=== PATIENT | female | born 1955 | race Caucasian/White ===

== ENCOUNTER 2021-04-09 14:01 | Emergency (ER) | payer BC ==
--- OUTSIDE RECORDS SUMMARY | 2021-04-09 14:09 | XMS REPORT | Continuity of Care Document ---
:1955 Author Organization [facility] t Address [address] [place] [address] Care Team Providers Name Role Phone ROSSY ALEMAN Primary Care Physician Unavailable MICHAEL DOBBS Attending Clinician Unavailable INFUSION Attending Clinician Unavailable LE Attending Clinician Unavailable RADHA Attending Clinician Unavailable SUZYONAUGUSTINA Attending Clinician Unavailable Infusion Attending Clinician Unavailable Claribel RM Attending Clinician Unavailable Michael Dobbs MD Attending Clinician Leticia SANCHEZ Attending Clinician Unavailable Leticia BOLAND Attending Clinician Unavailable ARIEL ALEMAN Attending Clinician Unavailable Kavon BISWAS Attending Clinician Unavailable SUJEY Attending Clinician Unavailable ROUND, E Attending Clinician Unavailable LAB39 Attending Clinician Unavailable OSORO Attending Clinician Unavailable SWAB, COVID SELF Attending Clinician Unavailable MARCELO BISWAS Attending Clinician Unavailable Alex Reddy MD Attending Clinician Sandra Park CRNA Attending Clinician Marcelo Biswas MD Attending Clinician Unavailable SWAB, COVID SELF Attending Clinician Unavailable [id number] Attending Clinician Unavailable [id number] Attending Clinician Unavailable MAC Attending Clinician Unavailable Edis GABRIEL Attending Clinician Unavailable aKiser Canales MD Attending Clinician Mariya IZQUIERDO Attending Clinician Gaby IZQUIERDO Attending Clinician MARIYA Attending Clinician Unavailable [id number] Attending Clinician Unavailable MARCELO BISWAS Admitting Clinician Unavailable MARIYA Admitting Clinician Unavailable Payers Payer Name Policy Type Policy Number Effective Date Expiration Date Andrés baxter BCBS 2 [id number] 2020 00:00:00 BCBS OS [id number] 2020 00:00:00 POS/PPO/EPO Problems Condition Condition Condition Status Onset Resolution Last Treating Co mments Source Name Details Category Date Date Treatment Clinician Date Cancer of Cancer of Disease Active 2020-02 Gustavo sey sigmoid sigmoid 1-03 Seybold colon colon 00:00: 00 Sigmoid Sigmoid Disease Active 2020-[address] [facility] diverticul diverticul 0-06 Lana kes - itis itis 00:00: Medical 00 [place] Dyslipidem Dyslipidem Disease Active 2020-02 K elsey ia ia 0-01 Seybold 00:00: 00 Preoperati Preoperati Disease Active 2020-02 K meenahéctor ve ve 0-01 Seybold clearance clearance 00:00: 00 Diverticul Diverticul Disease Active [facility] Medical 00 [place] GI bleed GI bleed Disease [facility] Center Allergies, Adverse Reactions, Alerts Allergy Allergy Status Severity Reaction(s) Onset Inactive Treating Comm ents Source Name Type Date Date Clinician NO KNOWN Allergy Active [facility] Social History Social Habit Start Date Stop Date Quantity Comments Source Exposure to Not sure Haley sunshine SARS-CoV-2 (event) Alcohol intake 2020-12-01 2020-12-01 Ex-drinker [facility] - 00:[facility]:00 00:00:00 (finding) [facility] Tobacco use and 2020-09-12 2020-09-[address] [facility] Lana kes - exposure 00:00:00 00:00:[address] [facility] Sex Assigned At [address] Lana kes - 00:00:00 00:00:[address] [facility] Smoking Status Start Date Stop Date Source Never smoker [facility] Ex-smoker 2020-05-31 00:00:00 2020-05-31 00:00:00 Haley S annabold Medications Ordered Filled Start Stop Current Ordering Indication Dosage Frequency Signature Comments Components Source Medication Medication Date Date Medication? Clinician (SIG) Name Name PEG-KCl-NaC Yes [id number] Take as Haley l-NaSulf-Na 2-04 directed Seyb old [facility] 00:00: (MOVIPREP) 00 100 g oral Recon Soln Capecitabin Yes [id number] Take 3 Haley e (XELODA) 2-03 tablets Seybol d 500 MG oral 00:00: (1,500 mg) tablet 00 by mouth every AM and 3 tablets (1,500 mg) by mouth every PM for 14 days, then take 7 days off, then repeat cycle. Use as directed by physician. Take doses approximat vanesa 12 hours apart at the end of a meal. Diphenoxyla Yes 1{tbl} Q.25D Take 1 K elsey te-Atropine 1-12 tablet by Jama davis (Lomotil) 00:00: mouth 4 2.5-0.025 00 times MG oral daily as Tablet needed for diarrhea Dexamethaso Yes 8mg Take 2 Noy ey ne 1-04 tablets (8 Seybold (DECADRON) 00:00: mg total) 4 MG oral 00 by mouth 2 tablet times daily (with meals) Oxaliplatin 2021- No [id number] 130mg/m 230 mg Haley (ELOXATIN) 02-27 2 (rounded Seyb old 230 mg in 18:15: 21:00 from 230.1 Dextrose 5 00 :00 mg = 130 % 500 mL mg/m2 infusion ?1.77 m2 Treatment Plan BSA from Recorded weight), at 250 mL/hr, Administer over 120 Minutes, intravenou s, ONCE, On Sat02/27/21 at 1215, For 1 dose
US E ONLY D5W (dextrose) to flush the line pre and post oxaliplati n infusion.& nbsp;&nbsp ;No ice chips or cold food and drink for patients on Oxaliplati n.
sodium 2021- No [id number] intravenou Haley chloride 02-27 s, ONCE, Seybol d 0.9 % 500 17:45: 18:23 On Mon mL infusion 00 :00 02/27/21 at 1145, For 1 dose Palonosetro 2021- No [id number] .25mg 0.25 mg, [facility] n (ALOXI) 02-27 intravenou Sey bold injection 17:45: 17:39 s push, 0.25 mg 00 :00 ONCE, On Sat02/27/21 at 1145, For 1 dose
Gi ve 30 minutes prior to chemothera py.
Fosaprepita 2021- No [id number] 150mg 150 mg, at [facility] nt 02-27 495 mL/hr, Seybold Dimeglumine 17:45: 18:12 Administer (EMEND) 150 00 :00 over 20 mg in Minutes, sodium intravenou chloride s, ONCE, 0.9 % 150 On Mon mL infusion 02/27/21 at 1145, For 1 dose
Gi ve 30 minutes prior to chemothera py.
Dexamethaso 2021- No [id number] 12mg 12 mg, at [facility] ne 02-27 355.2 Seybold (DECADRON) 17:45: 17:52 mL/hr, 12 mg in 00 :00 Administer sodium over 10 chloride Minutes, 0.9 % 50 mL intravenou infusion s, ONCE, On Sat02/27/21 at 1145, For 1 dose
Gi ve 30 minutes prior to chemothera py.
Prochlorper 2020-02 Yes 10mg Q6H Take 1 Noy ey azine 2-21 tablet (10 Seybold (COMPAZINE) 00:00: mg total) 10 MG oral 00 by mouth Tablet every 6 tablet hours as needed for nausea Prochlorper 2020-02 Yes 10mg Q6H Take 1 Noy ey azine 2-21 tablet (10 Seybold (COMPAZINE) 00:00: mg total) 10 MG oral 00 by mouth Tablet every 6 tablet hours as needed for nausea Prochlorper 2020-02 Yes 10mg Q6H Take 1 Noy ey azine 2-21 tablet (10 Seybold (COMPAZINE) 00:00: mg total) 10 MG oral 00 by mouth Tablet every 6 tablet hours as needed for nausea Prochlorper 2020-02- No 10mg Q6H Take 1 Gustavo sey azine 04-17 tablet (10 Seybold (COMPAZINE) 00:00: 00:00 mg total) 10 MG oral 00 :00 by mouth Tablet every 6 tablet hours as needed for nausea Oxaliplatin 2020-02- No [id number] 130mg/m 230 mg Haley (ELOXATIN) 04-09 2 (rounded Seyb old 230 mg in 19:30: 22:45 from 230.1 Dextrose 5 00 :00 mg = 130 % 500 mL mg/m2 infusion ?1.77 m2 Treatment Plan BSA from Recorded weight), at 250 mL/hr, Administer over 120 Minutes, intravenou s, ONCE, On Sat02/06/21 at 1330, For 1 dose
US E ONLY D5W (dextrose) to flush the line pre and post oxaliplati n infusion.& nbsp;&nbsp ;No ice chips or cold food and drink for patients on Oxaliplati n.
sodium 2020-02- No [id number] intravenou Haley chloride 04-09 s, ONCE, Seybol d 0.9 % 500 19:00: 19:50 On Mon mL infusion 00 :00 02/06/21 at 1300, For 1 dose Palonosetro 2020-02- No [id number] .25mg 0.25 mg, Haley n (ALOXI) 04-09 intravenou Sey bold injection 19:00: 19:03 s push, 0.25 mg 00 :00 ONCE, On Sat02/06/21 at 1300, For 1 dose
Gi ve 30 minutes prior to chemothera py.
Fosaprepita 2020-02- No [id number] 150mg 150 mg, at Haley nt 04-09 495 mL/hr, Seybold Dimeglumine 19:00: 20:06 Administer (EMEND) 150 00 :00 over 20 mg in Minutes, sodium intravenou chloride s, ONCE, 0.9 % 150 On Mon mL infusion 02/06/21 at 1300, For 1 dose
Gi ve 30 minutes prior to chemothera py.
Dexamethaso 2020-02- No [id number] 12mg 12 mg, at Haley ne 2-13 12-13 355.2 Seybold (DECADRON) 19:00: 19:17 mL/hr, 12 mg in 00 :00 Administer sodium over 10 chloride Minutes, 0.9 % 50 mL intravenou infusion s, ONCE, On Sat02/06/21 at 1300, For 1 dose
Gi ve 30 minutes prior to chemothera py.
Capecitabin 2020-02 Yes [id number] 1500mg Take 1,500 Haley e (XELODA) 2-10 mg by Seybold 500 MG oral 00:00: mouth 2 tablet 00 times daily Capecitabin 2020-02 Yes [id number] 1500mg Take 1,500 Haley e (XELODA) 2-10 mg by Seybold 500 MG oral 00:00: mouth 2 tablet 00 times daily Capecitabin 2020-02 Yes [id number] 1500mg Take 1,500 Haley e (XELODA) 2-10 mg by Seybold 500 MG oral 00:00: mouth 2 tablet 00 times daily Ondansetron 2020-02 Yes [id number] Take one Haley (ZOFRAN) 8 1-11 tablet by Seyb old MG oral 00:00: mouth tablet 00 every 8 hours as needed for nausea. Ondansetron 2020-02 Yes [id number] Take one Haley (ZOFRAN) 8 1-11 tablet by Seyb old MG oral 00:00: mouth tablet 00 every 8 hours as needed for nausea. Ondansetron 2020-02 Yes [id number] Take one Haley (ZOFRAN) 8 1-11 tablet by Seyb old MG oral 00:00: mouth tablet 00 every 8 hours as needed for nausea. Ondansetron 2020-02 Yes [id number] Take one Haley (ZOFRAN) 8 1-11 tablet by Seyb old MG oral 00:00: mouth tablet 00 every 8 hours as needed for nausea. Ondansetron 2020-02 Yes [id number] Take one Haley (ZOFRAN) 8 1-03 tablet by Seyb old MG oral 00:00: mouth tablet 00 every 8 hours as needed for nausea. latanoprost 2020-02 Yes 1[drp] QD [address] (XALATAN) 0-10 nightly. [facility] - 0.005 % 09:34: Medical ophthalmic 00 Center solution multivitami 2020-02 Yes 1{tbl} QD Take [address] n per 0-09 tablet by [facility] - tablet 09:34: mouth Medical 18 daily. [place] Tramadol 2020-02- No 50mg Q6H Take 1 Haley HCl 50 MG 008 - tablet (50 Sey bold oral Tablet 00:00: 00:00 mg total) 00 :00 by mouth every 6 hours as needed Evolocumab 2020-02 No 140mg Inject 1 K elsey (Repatha 003 mL (140 mg Seyb old SureClick) 00:00: 00:00 total) 140 MG/ML 00 :00 into the subcutaneou skin every s Solution 14 days Auto-inject or multivitami Yes 1{tbl} QD Take [address] n per 7-23 tablet by [facility] - tablet 13:32: mouth Medical 06 daily. [place] multivitami Yes 1{tbl} QD Take [address] n per 7-23 tablet by [facility] - tablet 13:32: mouth Medical 06 daily. Center multivitami Yes 1{tbl} QD Take [address] n per 7-23 tablet by [facility] - tablet 13:32: mouth Medical 06 daily. [place] ondansetron 2020- No 4mg Take [address] [facility] [address] (ZOFRAN) 4 09-16-30 tablet (4 Bj es - MG tablet 00:00: 23:59 mg total) Me dical 00 :00 by mouth 2 Center (two) times daily as needed for Nausea for up to 7 days. amoxicillin 2020- No 1{tbl} Q.[id number] Take [address] -clavulanat 09-16-30 [id number] tablet by [facility] - e 00:00: 23:59 3D mouth 3 Medical (AUGMENTIN) 00 :00 (three) Cente r 500-125 mg times per tablet daily for 7 days. metroNIDAZO 2020- No 500mg Q.[id number] Take [address] LE (FLAGYL) 09-16- [id number] tablet [facility] - 500 MG 00:00: 23:59 3D (500 mg Medical tablet 00 :00 total) by Center mouth 3 (three) times daily for 7 days. ondansetron 2020-2020- No 4mg Take [address] (ZOFRAN) 4 09-16-30 tablet (4 Bj es - MG tablet 00:00: 23:59 mg total) Me dical 00 :00 by mouth 2 Center (two) times daily as needed for Nausea for up to 7 days. amoxicillin 2020-2020- No 1{tbl} Q.[id number] Take [address] -clavulanat 09-16- [id number] tablet by [facility] - e 00:00: 23:59 3D mouth 3 Medical (AUGMENTIN) 00 :00 (three) Cente r 500-125 mg times per tablet daily for 7 days. metroNIDAZO 2020- No 500mg Q.[id number] Take [address] [facility] (FLAGYL) 09-16- [id number] tablet [facility] - 500 MG 00:00: 23:59 3D (500 mg Medical tablet 00 :00 total) by Center mouth 3 (three) times daily for 7 days. ondansetron 2020- No 4mg Take [address] (ZOFRAN) 4 09-16 tablet (4 Bj es - MG tablet 00:00: 23:59 mg total) Me dical 00 :00 by mouth 2 Center (two) times daily as needed for Nausea for up to 7 days. amoxicillin 2020-2020- No 1{tbl} Q.[id number] Take [address] -clavulanat 09-16- [id number] tablet by [facility] - e 00:00: 23:59 3D mouth 3 Medical (AUGMENTIN) 00 :00 (three) Cente r 500-125 mg times per tablet daily for 7 days. metroNIDAZO 2020-2020- No 500mg Q.[id number] Take [address] [facility] (FLAGYL) 09-16- [id number] tablet [facility] - 500 MG 00:00: 23:59 3D (500 mg Medical tablet 00 :00 total) by Center mouth 3 (three) times daily for 7 days. ondansetron 2020- No 4mg Take [address] (ZOFRAN) 4 09-16 tablet (4 Bj es - MG tablet 00:00: 23:59 mg total) Me dical 00 :00 by mouth 2 Center (two) times daily as needed for Nausea for up to 7 days. amoxicillin 2020- No 1{tbl} Q.[id number] Take [address] -clavulanat 09-16 [id number] tablet by [facility] - e 00:00: 23:59 3D mouth 3 Medical (AUGMENTIN) 00 :00 (three) Cente r 500-125 mg times per tablet daily for 7 days. metroNIDAZO 2020- No 500mg Q.[id number] Take [address] LE (FLAGYL) 09-16 [id number] tablet [facility] - 500 MG 00:00: 23:59 3D (500 mg Medical tablet 00 :00 total) by Center mouth 3 (three) times daily for 7 days. Latanoprost 0 Yes Haley 0.005 % 3-05 Seybold ophthalmic 00:00: Solution 00 Latanoprost 2020-0 Yes Haley 0.005 % 3-05 Seybold ophthalmic 00:00: Solution 00 Latanoprost 2020-0 Yes Haley 0.005 % 3-05 Seybold ophthalmic 00:00: Solution 00 Latanoprost 2020-0 Yes Haley 0.005 % 3-05 Seybold ophthalmic 00:00: Solution 00 Latanoprost 2020-0 Yes Haley 0.005 % 3-05 Seybold ophthalmic 00:00: Solution 00 Immunizations Ordered Immunization Filled Immunization Date Status Commen ts Source Name Name Tdap- (Boostrix, 2018-03-28 Completed Haley martinez Adacel) 00:00:00 Tdap- (Boostrix, 2018-03-28 Completed Haley martinez Adacel) 00:00:00 Tdap- (Boostrix, 2018-03-28 Completed Haley martinez Adacel) 00:00:00 Tdap- (Boostrix, 2018-03-28 Completed Haley Bowen eybold Adacel) 00:00:00 Tdap- (Boostrix, 2018-03-28 Completed Haley Bowen eybold Adacel) 00:00:00 Vital Signs Vital Name Observation Time Observation Value Comments Source Systolic blood 2021-02-27 16:07:00 154 mm[Hg] Haley Seybold pressure Diastolic blood 2021-02-27 16:07:00 89 mm[Hg] Kelse y Seybold pressure Heart rate 2021-02-27 16:07:00 90 /min Haley S eybold Body temperature 2021-02-27 16:07:00 36.11 Aarti Noy ey Seybold Respiratory rate 2021-02-27 16:07:00 17 /min Noy ey Seybold Body height 2021-02-27 16:07:00 149.9 cm Haley Bowen eybold Body weight 2021-02-27 16:07:00 77.384 kg Haley Bowen eybold BMI 2021-02-27 16:07:00 34.46 kg/m2 Haley S eybold Oxygen saturation in 2021-02-27 16:07:00 98 /min Haley Seybold Arterial blood by Pulse oximetry Systolic blood 2021-02-14 20:21:00 157 mm[Hg] Haley Seybold pressure Diastolic blood 2021-02-14 20:21:00 91 mm[Hg] Kelse y Seybold pressure Heart rate 2021-02-14 20:21:00 110 /min Haley S eybold Body temperature 2021-02-14 20:21:00 36.94 Aarti Noy ey Seybold Respiratory rate 2021-02-14 20:21:00 16 /min Noy ey Seybold Body height 2021-02-14 20:21:00 149.9 cm Haley S eybold Body weight 2021-02-14 20:21:00 76.068 kg Haley S eybold BMI 2021-02-14 20:21:00 33.87 kg/m2 Haley S eybold Oxygen saturation in 2021-02-14 20:21:00 100 /min Haley Seybold Arterial blood by Pulse oximetry Systolic blood 2021-02-06 18:00:00 165 mm[Hg] Haley Seybold pressure Diastolic blood 2021-02-06 18:00:00 88 mm[Hg] Kelse y Seybold pressure Heart rate 2021-02-06 18:00:00 95 /min Haley S eybold Body temperature 2021-02-06 18:00:00 36.17 Aarti Noy ey Seybold Respiratory rate 2021-02-06 18:00:00 17 /min Noy ey Seybold Body height 2021-02-06 18:00:00 149.9 cm Haley S eybold Body weight 2021-02-06 18:00:00 78.064 kg Haley S eybold BMI 2021-02-06 18:00:00 34.76 kg/m2 Haley S eybold Oxygen saturation in 2021-02-06 18:00:00 99 /min Haley Seybold Arterial blood by Pulse oximetry Systolic blood 2020-12-28 16:24:00 154 mm[Hg] Haley Seybold pressure Diastolic blood 2020-12-28 16:24:00 70 mm[Hg] Kelse y Seybold pressure Heart rate 2020-12-28 16:24:00 89 /min Haley S eybold Body temperature 2020-12-28 16:24:00 36.67 Aarti Noy ey Seybold Respiratory rate 2020-12-28 16:24:00 16 /min Noy ey Seybold Body height 2020-12-28 16:24:00 149.9 cm Haley S eybold Body weight 2020-12-28 16:24:00 75.342 kg Haley S eybold BMI 2020-12-28 16:24:00 33.55 kg/m2 Haley S eybold Oxygen saturation in 2020-12-28 16:24:00 100 /min Haley Seybold Arterial blood by Pulse oximetry HEIGHT 2020-11-30 07:59:00 149.9 cm WEIGHT 2020-11-30 07:59:00 72.5 kg HEIGHT 2020-11-24 13:36:00 149.9 cm WEIGHT 2020-11-24 13:36:00 72.576 kg HEIGHT 2020-11-30 07:59:00 149.9 cm WEIGHT 2020-11-30 07:59:00 72.5 kg HEIGHT 2020-11-24 13:36:00 149.9 cm WEIGHT 2020-11-24 13:36:00 72.576 kg WEIGHT 2020-09-14 07:52:00 77.5 kg HEIGHT 2020-09-13 01:25:00 147.3 cm WEIGHT 2020-09-13 01:25:00 77.384 kg HEIGHT 2020-09-12 16:55:00 147.3 cm WEIGHT 2020-09-12 16:55:00 79.379 kg WEIGHT 2020-09-14 07:52:00 77.5 kg HEIGHT 2020-09-13 01:25:00 147.3 cm WEIGHT 2020-09-13 01:25:00 77.384 kg HEIGHT 2020-09-12 16:55:00 147.3 cm WEIGHT 2020-09-12 16:55:00 79.379 kg Systolic blood 2020-12-03 07:11:00 117 mm[Hg] [facility] Diastolic blood 2020-12-03 07:11:00 51 mm[Hg] [facility] Heart rate 2020-12-03 07:11:00 79 /min [facility] Body temperature 2020-12-03 07:11:00 36.17 Aarti [facility] Respiratory rate 2020-12-03 07:11:00 18 /min [facility] Oxygen saturation in 2020-12-03 07:11:00 98 /min [facility] Arterial blood by Medical nter Pulse oximetry Body height 2020-11-30 07:59:00 149.9 cm [facility] Body weight 2020-11-30 07:59:00 72.5 kg [facility] BMI 2020-11-30 07:59:00 32.28 kg/m2 [facility] Systolic blood 2020-09-16 08:00:00 108 mm[Hg] [facility] Diastolic blood 2020-09-16 08:00:00 51 mm[Hg] [facility] Heart rate 2020-09-16 08:00:00 74 /min [facility] Body temperature 2020-09-16 08:00:00 36.89 Aarti [facility] Respiratory rate 2020-09-16 08:00:00 18 /min [facility] Oxygen saturation in 2020-09-16 08:00:00 98 /min [facility] - Arterial blood by Medical Ce nter Pulse oximetry Body weight 2020-09-14 07:52:00 77.5 kg [facility] BMI 2020-09-14 07:52:00 35.71 kg/m2 [facility] Body height 2020-09-13 01:25:00 147.3 cm [facility] Procedures Procedure Date / Time Performed Performing Clinician [facility] e CBC WITH 2021-02-27 16:09:00 Rocío Dobbs eybold DIFFERENTIAL/PLATELET Reza COMP. METABOLIC PANEL 2021-02-27 16:09:00 Rocío Dobbs (14) Reza CBC WITH 2021-02-06 18:09:00 Rocío Dobbs eybold DIFFERENTIAL/PLATELET Reza LAPAROSCOPY,LOW ANTERIOR 2020-12-14 08:00:00 Altaf Biswas [facility] HEMOGLOBIN AND HEMATOCRIT 2020-12-01 04:13:00 Altaf Biswas [facility] BASIC METABOLIC PANEL (7) 2020-12-01 04:11:00 Altaf Biswas [facility] MAGNESIUM 2020-12-01 04:11:00 Altaf Biswas [facility] PHOSPHORUS 2020-12-01 04:11:00 Altaf Biswas Antonio [facility] LAPAROSCOPY,LOW ANTERIOR 2020-11-30 10:30:00 Altaf Biswas [facility] LAPAROSCOPY,LOW ANTERIOR 2020-11-30 10:20:00 Altaf Biswas [facility] POCT-GLUCOSE METER 2020-11-30 08:18:00 Tschen, [facility] SARS-COV2/RT-PCR ([facility] & 2020-11-29 11:52:00 [facility] Center TYPE AND SCREEN, 2020-11-29 11:52:00 [facility] LAPAROSCOPY,LOW ANTERIOR 2020-11-28 11:30:00 Nasima [facility] RESECTION [facility] POCT-GLUCOSE METER 2020-09-15 16:32:00 [facility] POCT-GLUCOSE METER 2020-09-15 11:47:00 [facility] COMPREHENSIVE METABOLIC 2020-09-15 05:42:00 [facility] CBC W/PLT COUNT & AUTO 2020-09-15 05:42:00 [facility] CBC W/PLT COUNT & AUTO 2020-09-15 05:42:[address] [facility] [address] DRAINAGE ABDOMINAL 2020-09-14 15:55:00 [facility] CBC W/PLT COUNT & AUTO 2020-09-14 04:00:00 [facility] 2020-09-14 04:00:00 [facility] PROTHROMBIN TIME/INR 2020-09-14 04:00:00 [facility] CBC W/PLT COUNT & AUTO 2020-09-14 04:00:00 [facility] 2020-09-13 05:30:00 [facility] CBC W/PLT COUNT & AUTO 2020-09-13 05:30:00 [facility] CBC W/PLT COUNT & AUTO 2020-09-13 05:30:00 [facility] SARS-COV2/RT-PCR ([facility] & 2020-09-12 21:53:[address] [facility] - REF LABS[facility] CBC W/PLT COUNT & AUTO 2020-09-12 21:53:[address] [facility] - DIFFERENTIAL [facility] COMPREHENSIVE METABOLIC 2020-09-12 21:53:00 Lucy Canales [facility] PANEL [facility] PT/APTT 2020-09-12 21:53:[address] [facility] CBC W/PLT COUNT & AUTO 2020-09-12 21:53:[address] [facility] - DIFFERENTIAL [facility] Plan of Care Planned Activity Planned Date Details Comments Source Future Scheduled 2028-03-28 DTAP/TDAP/TD VACCINES [facility] Test 00:00:00 (2 - Td or Tdap) Medical [address] [code = DTAP/TDAP/TD VACCINES (2 - Td or Tdap)] Future Scheduled 2023-09-[address] - Test 00:00:00 (procedure) [code = [facility] [id number]] Future Scheduled 2020-10-[address] [facility] - Test 00:00:00 (#1) [code = [facility] INFLUENZA VACCINE (#1)] Future Scheduled 2020-10-[address] [facility] - Test 00:00:00 (#1) [code = [facility] INFLUENZA VACCINE (#1)] Future Scheduled 2020-10-[address] [facility] - Test 00:00:00 (#1) [code = [facility] INFLUENZA VACCINE (#1)] Future Scheduled 2020-10-[address] [facility] - Test 00:00:00 (#1) [code = [facility] INFLUENZA VACCINE (#1)] Future Scheduled 2020-02-[address] [facility] - Test 00:00:00 (12+) [code = [facility] DEPRESSION SCREENING (12+)] Future Scheduled 2020-02-[address] [facility] - Test 00:00:00 (12+) [code = [facility] DEPRESSION SCREENING (12+)] Future Scheduled 2020-02-[address] [facility] - Test 00:00:00 (12+) [code = Medical Center DEPRESSION SCREENING (12+)] Future Scheduled 2020-02-[address] [facility] - Test 00:00:00 (12+) [code = [facility] DEPRESSION SCREENING (12+)] Future Scheduled 2007-08-03 SHINGLES VACCINES ([address] [facility] - Test 00:00:00 of 2) [code = Medical Center SHINGLES VACCINES (1 of 2)] Future Scheduled 2007-08-03 SHINGLES VACCINES ([address] [facility] - Test 00:00:00 of 2) [code = [facility] SHINGLES VACCINES (1 of 2)] Future Scheduled 2007-08-03 SHINGLES VACCINES ([address] [facility] - Test 00:00:00 of 2) [code = [facility] SHINGLES VACCINES (1 of 2)] Future Scheduled 2007-08-03 SHINGLES VACCINES ([address] [facility] - Test 00:00:00 of 2) [code = [facility] SHINGLES VACCINES (1 of 2)] Future Scheduled [address] [facility] - Test 00:00:00 (procedure) [code = [facility] [id number]] Future Scheduled [address] [facility] - Test 00:00:00 (procedure) [code = [facility] [id number]] Future Scheduled [address] [facility] - Test 00:00:00 (procedure) [code = [facility] [id number]] Future Scheduled [address] [facility] - Test 00:00:00 malignant neoplasm of Medica l Center cervix (procedure) [code = 971202856] Future Scheduled [address] [facility] - Test 00:00:00 malignant neoplasm of Medica l Center cervix (procedure) [code = [id number]] Future Scheduled [address] [facility] - Test 00:00:00 malignant neoplasm of Medica l Center cervix (procedure) [code = [id number]] Future Scheduled [address] [facility] cervix (procedure) [code = 446591114] Future Scheduled 1976 DTAP/TDAP/TD [facility]ACCINES [facility]:00 (1 - Tdap) [code = Medical C enter DTAP/TDAP/TD VACCINES (1 - Tdap)] Future Scheduled 1976 DTAP/TDAP/TD [facility]ACCINES [facility] 00:00:00 (1 - Tdap) [code = Medical C enter DTAP/TDAP/TD VACCINES (1 - Tdap)] Future Scheduled 1976 DTAP/TDAP/TD [facility]ACCINES [facility] 00:00:00 (1 - Tdap) [code = Medical C enter DTAP/TDAP/TD VACCINES (1 - Tdap)] Future Scheduled 1975-08-03 HEPATITIS C [facility] [code [facility]] Future Scheduled 1975-08-03 HEPATITIS C [facility]00 [code = [facility]IS [facility] SCREEN[facility]] Future Scheduled 1975-08-03 HE[facility]ITIS C [facility]:00 [code = [facility]IS [facility] SCRE[facility]] Future Scheduled 1975-08-03 [facility]ITIS C [facility] [code = [facility]IS [facility] SCREENING] Future Scheduled 1969 COVID-19 VACCINE (1) [facility] 00:00:00 [code = COVID-[address] VACCINE (1)] Future Scheduled 1969 COVID-19 VACCINE (1) [facility] 00:00:00 [code = COVID-[address] VACCINE (1)] Future Scheduled 1969 COVID-19 VACCINE (1) [facility] 00:00:00 [code = COVID-[address] VACCINE (1)] Future Scheduled 1969 COVID-19 VACCINE (1) [facility] 00:00:00 [code = COVID-[address] VACCINE (1)] Future Scheduled [address] [facility] breast (procedure) [code = 848794094] Future Scheduled [address] [facility]:00 [facility] colon (procedure) [code = 261336908] Future Scheduled [address] [facility] 00:00:00 [facility] breast (procedure) [code = 236750871] Future Scheduled [address] [facility] 00:00:00 [facility] colon (procedure) [code = 799088041] Future Scheduled [address] [facility]:00 [facility] breast (procedure) [code = 505634545] Future Scheduled [address] [facility] 00:00:00 [facility] colon (procedure) [code = 277002575] Future Scheduled [address] [facility] 00:[facility]:00 [facility] breast (procedure) [code = 034815151] Future Scheduled [address] [facility] 00:00:[facility] colon (procedure) [code = 541575524] Encounters Start End Encounter Admission Attending Care Care Encounter Source Date/Time Date/Time Type Type Clinicians Facility Department ID 2021-04-11 2021-04-11 Outpatient HALEY DOBBS [id number] [place] 11:20:00 11:20:00 MOHAMMAD Seybo ld 2021-04-10 2021-04-10 Outpatient INFUSIONHALEY [id number] [place] 09:45:00 09:45:00 Seybol d 2021-04-07 2021-04-07 Outpatient REHAN DUNCAN [id number] [place] 00:00:00 00:00:00 Seybol d 2021-04-06 2021-04-06 Outpatient HALEY DOBBS [id number] [place] 00:00:00 00:00:00 MOHAMMAD Seybo ld 2021-04-05 2021-04-05 Outpatient HALEY DOBBS [id number] [place] 00:00:00 00:00:00 MOHAMMAD Seybo ld 2021-04-05 2021-04-05 Outpatient DILIA, HALEY PEDRAZA [id number] [place] 00:00:00 00:00:00 MOHAMMAD Seybo ld 2021-04-03 2021-04-03 Outpatient DILIA, HALEY PEDRAZA [id number] [place] 00:00:00 00:00:00 MOHAMMAD Seybo ld 2021-04-03 2021-04-03 Outpatient LE, REHAN HALEY PEDRAZA [id number] [place] 00:00:00 00:00:00 Seybol d 2021-04-03 2021-04-03 Outpatient DILIA, HALEY PEDRAZA [id number] [place] 00:00:00 00:00:00 MOHAMMAD Seybo ld 2021-03-31 2021-03-31 Telemedici RADHADAYO HerreraMYNOR [id number] [place] 11:00:00 11:00:00 ne 350.1.13.13 Se ybold [id number] 2021-03-30 2021-03-30 Outpatient DILIA, HALEY PEDRAZA [id number] [place] 00:00:00 00:00:00 MOHAMMAD Seybo ld 2021-03-24 2021-03-24 Outpatient DILIA, HALEY PEDRAZA [id number] [place] 00:00:00 00:00:00 MOHAMMAD Seybo ld 2021-03-21 2021-03-21 Outpatient DILIA, HALEY PEDRAZA [id number] [place] 00:00:00 00:00:00 MOHAMMAD Seybo ld 2021-03-21 2021-03-21 Outpatient MYKELSEYONL HALEY PEDRAZA [id number] [place] 00:00:00 00:00:00 MD ELMO Seybol d 2021-03-20 2021-03-20 Outpatient INFUSION, HALEY PEDRAZA [id number] [place] 11:00:00 11:00:00 Seybol d 2021-03-20 2021-03-20 Outpatient INFUSION, HALEY PEDRAZA [id number] [place] 10:00:00 10:00:00 Seybol d 2021-03-20 2021-03-20 Outpatient DILIA, HALEY PEDRAZA [id number] [place] 00:00:00 00:00:00 MOHAMMAD Seybo ld 2021-03-08 2021-03-08 Outpatient DILIA, HALEY PEDRAZA [id number] [place] 00:00:00 00:00:00 MOHAMMAD Seybo ld 2021-03-07 2021-03-07 Outpatient DILIA, HALEY PEDRAZA [id number] [place] 15:00:00 15:00:00 MOHAMMAD Seybo ld 2021-03-07 2021-03-07 Outpatient DILIA, HALEY PEDRAZA [id number] [place] 00:00:00 00:00:00 MOHAMMAD Seybo ld 2021-03-03 2021-03-03 Outpatient RADHA, DAYO PEDRAZA [id number] [place] 14:00:00 14:00:00 Seybol d 2021-03-01 2021-03-01 Outpatient DILIA, HALEY PEDRAZA [id number] [place] 00:00:00 00:00:00 MOHAMMAD Seybo ld 2021-03-01 2021-03-01 Outpatient DILIA, HALEY PEDRAZA [id number] [place] 00:00:00 00:00:00 MOHAMMAD Seybo ld 2021-02-28 2021-02-28 Outpatient DILIA, HALEY PEDRAZA [id number] [place] 00:00:00 00:00:00 MOHAMMAD Seybo ld 2021-02-28 2021-02-28 Outpatient RADHA, DAYO PEDRAZA [id number] [place] 00:00:00 00:00:00 Seybol d 2021-02-27 2021-02-27 Outpatient HALEY PEDRAZA [id number] [place] 14:20:00 14:20:00 Seybol d 2021-02-27 2021-02-27 Outpatient HALEY PEDRAZA [id number] [place] 14:15:00 14:15:00 Seybol d 2021-02-27 2021-02-27 Infusion Infusion, [facility] [id number] [place] 10:00:00 14:00:00 Infusion, [facility] 350.1.13.13 Seybold 1.2.7.2.686 [id number] 2021-02-27 2021-02-27 Outpatient INFUSION, HALEY PEDRAZA [id number] [place] 11:00:00 11:00:00 Seybol d 2021-02-27 2021-02-27 Outpatient DILIAHALEY [id number] [place] 00:00:00 00:00:00 MOHAMMAD Seybo ld 2021-02-23 2021-02-23 Outpatient DILIAHALEY [id number] [place] 00:00:00 00:00:00 MOHAMMAD Seybo ld 2021-02-20 2021-02-20 Outpatient DILIAHALEY CARTER [id number] [place] 00:00:00 00:00:00 MOHAMMAD Seybo ld 2021-02-16 2021-02-16 Outpatient HALEY RM [id number] [place] 00:00:00 00:00:00 PURVIBEAndrew Seybo ld 2021-02-15 2021-02-15 Outpatient HALEY DOBBS [id number] [place] 00:00:00 00:00:00 MOHAMMAD Seybo ld 2021-02-14 2021-02-14 Office ANTONIO Dobbs 1.2.840.114 [id number] [place] 14:20:00 14:40:00 Visit [facility] 350.1.13.13 michelle Cobb 1.2.7.2.686 [id number] 2021-02-14 2021-02-14 Outpatient SUZYONErick PEDRAZA [id number] [place] 00:00:00 00:00:00 MD Frankie BORREGOol d 2021-02-10 2021-02-10 Outpatient HALEY DOBBS [id number] [place] 00:00:00 00:00:00 MOHAMMAD Seybo ld 2021-02-06 2021-02-06 Outpatient HALEY PEDRAZA [id number] [place] 16:15:00 16:15:00 Seybol d 2021-02-06 2021-02-06 Infusion Infusion, [facility] 1.2.840.114 [id number] [place] 12:00:00 16:00:00 Infusion, [facility] 350.1.13.13 Seybold 1.2.7.2.686 [id number] 2021-02-03 2021-02-03 Outpatient HALEY SANCHEZ [id number] [place] 10:00:00 10:00:00 KYRIE Seybol d 2021-02-03 2021-02-03 Outpatient DILIAHALEY CARTER [id number] [place] 00:00:00 00:00:00 MOHAMMAD Seybo ld 2021-02-03 2021-02-03 Outpatient TRIHALEY ZUNIGA [id number] [place] 00:00:00 00:00:00 CAROLINA Seybol d 2021-02-02 2021-02-02 Outpatient HALEY DOBBS [id number] [place] 00:00:00 00:00:00 MOHAMMAD Seybo ld 2021-02-01 2021-02-01 Outpatient HALEY DOBBS [id number] [place] 00:00:00 00:00:00 MOHAMMAD Seybo ld 2021-01-30 2021-01-30 Outpatient DILIAHALEY CARTER [id number] [place] 00:00:00 00:00:00 MOHAMMAD Seybo ld 2021-01-30 2021-01-30 Outpatient HALEY RM [id number] [place] 00:00:00 00:00:00 PURVIBEN Seybo ld 2021-01-25 2021-01-25 Outpatient HALEY DOBBS [id number] [place] 14:40:00 14:40:00 MOHAMMAD Seybo ld 2021-01-17 2021-01-17 Outpatient HALEY ALEMAN [id number] [place] 00:00:00 00:00:00 ROSSY Seybol d 2021-01-13 2021-01-13 Outpatient HALEY PEDRAZA [id number] [place] 13:40:00 13:40:00 Seybol d 2021-01-10 2021-01-10 Outpatient TSCHEN, HALEY PEDRAZA [id number] [place] 00:00:00 00:00:00 ALTAF Seybol d 2021-01-06 2021-01-06 Outpatient DILIA, HALEY PEDRAZA [id number] [place] 00:00:00 00:00:00 MOHAMMAD Seybo ld 2021-01-05 2021-01-05 Outpatient DILIA, HALEY PEDRAZA [id number] [place] 00:00:00 00:00:00 MOHAMMAD Seybo ld 2021-01-05 2021-01-05 Outpatient RM, HALEY PEDRAZA [id number] [place] 00:00:00 00:00:00 FELISA Seybol d 2021-01-05 2021-01-05 Outpatient DILIA, HALEY PEDRAZA [id number] [place] 00:00:00 00:00:00 MOHAMMAD Seybo ld 2021-01-05 2021-01-05 Outpatient DILIA, HALEY PEDRAZA [id number] [place] 00:00:00 00:00:00 MOHAMMAD Seybo ld 2021-01-05 2021-01-05 Outpatient LE, REHAN PEDRAZA [id number] [place] 00:00:00 00:00:00 Seybol d 2021-01-05 2021-01-05 Outpatient LE, REHAN PEDRAZA [id number] [place] 00:00:00 00:00:00 Seybol d 2021-01-03 2021-01-03 Outpatient DILIA, HALEY PEDRAZA [id number] [place] 00:00:00 00:00:00 MOHAMMAD Seybo ld 2021-01-03 2021-01-03 Outpatient DILIA, HALEY PEDRAZA [id number] [place] 00:00:00 00:00:00 MOHAMMAD Seybo ld 2021-01-03 2021-01-03 Outpatient DILIA, HALEY PEDRAZA [id number] [place] 00:00:00 00:00:00 MOHAMMAD Seybo ld 2021-01-02 2021-01-02 Outpatient DILIA, HALEY BUTTERFIELDSEY [id number] [place] 00:00:00 00:00:00 MADELIND Frankieo ld 2020-12-30 2020-12-30 Outpatient DEYSI DELCID HALEY PEDRAZA [id number] [place] 00:00:00 00:00:00 Seybol d 2020-12-30 2020-12-30 Outpatient DILIA HALEY PEDRAZA [id number] [place] 00:00:00 00:00:00 MADELIND ybo ld 2020-12-28 2020-12-28 Outpatient LAB39 HALEY PEDRAZA [id number] [place] 12:35:00 12:35:00 Seybol d 2020-12-28 2020-12-28 Office ANTONIO Dobbs 1.2.840.114 [id number] [place] 11:17:21 12:17:21 Visit [facility] 350.1.13.[address] [facility] 1.2.7.2.686 [id number] 2020-12-22 2020-12-22 Outpatient HALEY PEDRAZA [id number] [place] 15:00:00 15:00:00 Seybol d 2020-12-14 2020-12-14 Outpatient HALEY BISWAS [id number] [place] 08:00:00 08:00:00 ALTAF Seybol d 2020-12-14 2020-12-14 Outpatient HALEY BISWAS [id number] [place] 00:00:00 00:00:00 ALTAF Seybol d 2020-12-13 2020-12-13 Outpatient HALEY BISWAS [id number] [place] 00:00:00 00:00:00 ALTAF Seybol d 2020-12-13 2020-12-13 Outpatient HALEY BISWAS [id number] [place] 00:00:00 00:00:00 ALTAF Seybol d 2020-12-12 2020-12-12 Outpatient OSOROHALEY [id number] [place] 00:00:00 00:00:00 LUISA Seybol d 2020-12-09 2020-12-09 Outpatient SWAB, CK HALEY PEDRAZA [id number] [place] 13:40:00 13:40:00 Seybol d 2020-12-09 2020-12-09 Outpatient LAB39 HALEY PEDRAZA [id number] [place] 11:00:00 11:00:00 Seybol d 2020-12-09 2020-12-09 Outpatient NASIMA HALEY PEDRAZA [id number] [place] 10:30:00 10:30:00 ALTAF Seybol d 2020-12-09 2020-12-09 Outpatient TSCKERVIN, HALEY PEDRAZA [id number] [place] 00:00:00 00:00:00 ALTAF Seybol d 2020-12-06 2020-12-06 Outpatient TSCKERVIN, HALEY PEDRAZA [id number] [place] 00:00:00 00:00:00 ALTAF Seybol d 2020-12-05 2020-12-05 Outpatient RADHADAYO Herrera HALEY PEDRAZA [id number] [place] 11:30:00 11:30:00 Seybol d 2020-12-04 2020-12-04 Outpatient NASIMA, HALEY PEDRAZA [id number] [place] 00:00:00 00:00:00 ALTAF Seybol d 2020-11-30 2020-12-03 Inpatient EL TSCKERVIN, [facility] Surgery [id number] SLE 05:44:00 09:34:00 ALTAF 2020-12-02 2020-12-02 Outpatient NASIMA HALEY PEDRAZA [id number] [place] 00:00:00 00:00:00 ALTAF Seybol d 2020-11-30 2020-11-30 Anesthesia Ronald Reddy [facility] [id number] 10:35:00 14:36:00 Event [place] [facility] 2020-11-30 2020-11-30 Surgery Tschen, [facility] [id number] 10:30:00 13:00:00 [facility] 2020-11-30 2020-11-30 Travel [facility] [id number] [facility] 00[facility]:00 [facility] 2020-11-29 2020-11-29 Outpatient EL TSCHEN, SLE SLE [id number] [facility] 11:43:07 23:59:00 ALTAF 2020-11-29 2020-11-29 [facility] Nasima, [facility] [id number] 11:30:00 23:59:[address] [facility] 2020-11-29 2020-11-29 Outpatient HALEY PEDRAZA [id number] [place] 13:00:00 13:00:00 Seybol d 2020-11-29 2020-11-29 Outpatient EL SLE [facility]H [id number] [facility] 00:00:00 00:00:00 2020-11-28 2020-11-28 Outpatient HALEY BISWAS [id number] [place] 00:00:00 00:00:00 ALTAF Seybol d 2020-11-25 2020-11-25 Outpatient SWAB, SK HALEY PEDRAZA [id number] [place] 13:50:00 13:50:00 Seybol d 2020-11-25 2020-11-25 Outpatient SWAB, CK HALEY PEDRAZA [id number] [place] 13:40:00 13:40:00 Seybol d 2020-11-25 2020-11-25 Outpatient OSOROHALEY [id number] [place] 10:40:00 10:40:00 LUISA Seybol d 2020-11-25 2020-11-25 Outpatient TRED68 HALEY PEDRAZA [id number] [place] 10:30:00 10:30:00 Seybol d 2020-11-25 2020-11-25 Outpatient OSOROHALEY [id number] [place] 00:00:00 00:00:00 LUISA Seybol d 2020-11-25 2020-11-25 Outpatient TSCHENHALEY [id number] [place] 00:00:00 00:00:00 ALTAF Seybol d 2020-11-25 2020-11-25 Outpatient HALEY BISWAS [id number] [place] 00:00:00 00:00:00 ALTAF Seybol d 2020-11-24 2020-11-24 [facility] [id number] 13:30:00 23:59:00 Encounter [facility] 2020-11-24 2020-11-24 Outpatient EL SLEH SLEH [id number] [facility] 00:00:00 00:00:00 2020-11-24 2020-11-24 Travel [facility] [id number] [facility] 00[facility]00 [facility] 2020-11-23 2020-11-23 Outpatient YSA53-QXE HALEY PEDRAZA [id number] [place] 15:15:00 15:15:00 Seybol d 2020-11-23 2020-11-23 Outpatient SWAB, CK HALEY PEDRAZA [id number] [place] 15:00:00 15:00:00 Seybol d 2020-11-17 2020-11-17 Outpatient HALEY PEDRAZA [id number] [place] 14:30:00 14:30:00 Seybol d 2020-11-17 2020-11-17 Outpatient DAYO GARCIA [id number] [place] 00:00:00 00:00:00 Seybol d 2020-11-16 2020-11-16 Outpatient HALEY BISWAS [id number] [place] 00:00:00 00:00:00 ALTAF Seybol d 2020-11-15 2020-11-15 Outpatient MAC, EKG- HALEY PEDRAZA [id number] [place] 10:45:00 10:45:00 Seybol d 2020-11-15 2020-11-15 Outpatient LAB39 HALEY PEDRAZA [id number] [place] 10:00:00 10:00:00 Seybol d 2020-11-15 2020-11-15 Outpatient HALEY BISWAS [id number] [place] 09:15:00 09:15:00 ALTAF Seybol d 2020-11-15 2020-11-15 Outpatient ATILIO PEDRAZA [id number] [place] 00:00:00 00:00:00 MD ELMO Seybol d 2020-11-11 2020-11-11 Outpatient DAYO GARCIA [id number] [place] 00:00:00 00:00:00 Seybol d 2020-11-11 2020-11-11 Outpatient RADHA, DAYO PEDRAZA [id number] [place] 00:00:00 00:00:00 Seybol d 2020-11-11 2020-11-11 Outpatient NASIMA HALEY PEDRAZA [id number] [place] 00:00:00 00:00:00 ALTAF Seybol d 2020-11-01 2020-11-01 Outpatient RADHA, DAYOHéctor PEDRAZA [id number] [place] 00:00:00 00:00:00 Seybol d 2020-10-27 2020-10-27 Outpatient HALEY BISWAS [id number] [place] 15:00:00 15:00:00 ALTAF Seybol d 2020-10-14 2020-10-14 Outpatient RADHA, DAYO PEDRAZA [id number] [place] 16:40:00 16:40:00 Seybol d 2020-10-13 2020-10-13 Outpatient HALEY GABRIEL [id number] [place] 14:40:00 14:40:00 SUNITHA Seybo ld 2020-10-04 2020-10-04 Outpatient HALEY ALEMAN [id number] [place] 00:00:00 00:00:00 ROSSY Seybol d 2020-10-04 2020-10-04 Outpatient RADHA, DAYO PEDRAZA [id number] [place] 00:00:00 00:00:00 Seybol d 2020-09-30 2020-09-30 Outpatient HALEY ALEMAN [id number] [place] 14:00:00 14:00:00 ROSSY Seybol d 2020-09-30 2020-09-30 Outpatient RADHA, DAYO PEDRAZA [id number] [place] 00:00:00 00:00:00 Seybol d 2020-09-29 2020-09-29 Outpatient HALEY GABRIEL [id number] [place] 14:30:00 14:30:00 SUNITHA Seybo ld 2020-09-23 2020-09-23 Outpatient RADHA, DAYO PEDRAZA [id number] [place] 00:00:00 00:00:00 Seybol d 2020-09-22 2020-09-22 Outpatient RADHA, DAYO HALEY PEDRAZA [id number] [place] 00:00:00 00:00:00 Seybol d 2020-09-21 2020-09-21 Outpatient RADHA, DAYOHéctor PEDRAZA [id number] [place] 00:00:00 00:00:00 Seybol d 2020-09-19 2020-09-19 Outpatient LOVE, HALEY PEDRAZA [id number] [place] 00:00:00 00:00:00 ROSSY Seybol d 2020-09-16 2020-09-16 Outpatient RADHA, DAYOHéctor PEDRAZA [id number] [place] 14:00:00 14:00:00 Seybol d 2020-09-12 2020-09-16 [facility] [id number] 21:38:00 13:22:00 Encounter [facility] 2020-09-13 2020-09-13 Outpatient MARIYA, HALEY PEDRAZA [id number] [place] 00:00:00 00:00:00 GRIS Adamybo ld 2020-09-12 2020-09-12 Emergency ER SLE Emergency [id number] [facility] 15:53:00 15:53:00 2020-09-12 2020-09-12 Outpatient HALEY PEDRAZA [id number] [place] 11:00:00 11:00:00 Seybol d 2020-09-12 2020-09-12 Travel [facility] [id number] [facility] 00:[facility]00 00:00:00 [facility] 2020-09-11 2020-09-11 Outpatient RADHA, DAYO PEDRAZA [id number] [place] 00:00:00 00:00:00 Seybol d 2020-09-09 2020-09-09 Outpatient RADHA, DAYO PEDRAZA [id number] [place] 13:00:00 13:00:00 Seybol d 2020-09-02 2020-09-02 Outpatient LAB90 HALEY PEDRAZA [id number] [place] 10:55:00 10:55:00 Arnulfo sunshine 2020-09-02 2020-09-02 Outpatient LOVE HALEY HALEY [id number] [place] 10:00:00 10:00:00 ROSSY sunshine Results Test Description Test Time Test Comments Results Result Comments Source COMP. METABOLIC PANEL (14) 2021-02-27 18:55:00 Test Item Value Reference Range Interpretation Comme nts GLUCOSE, SERUM (test code 108 mg/dL 65-99 H = 2345-7) BUN (test code = 3094-0) 9 mg/dL 8-27 CREATININE, SERUM (test 0.58 mg/dL 0.57-1.00 code = 2160-0) EGFR IF NONAFRICN AM (test 98 mL/min/1.73 >59 code = 45484-4) EGFR IF AFRICN AM (test 113 mL/min/1.73 >59 * *In accordance with code = 34723-5) recommendati ons from the NKF-ASN Task fo rce, ?[facility] is in the process of updating its eGFR calculation to the ?2020 CKD-EPI creatin ine equation that e stimates kidney function ?without a race variable. BUN/CREATININE RATIO (test 02-21 code = 3097-3) SODIUM, SERUM (test code = 141 mmol/L 802-260 9964-2) POTASSIUM, SERUM (test 4.3 mmol/L 3.5-5.2 code = 2823-3) CHLORIDE, SERUM (test code 109 mmol/L 96-106 H = 5-0) CARBON DIOXIDE, TOTAL 20 mmol/L 20-29 (test code = 2027-) CALCIUM, SERUM (test code 9.5 mg/dL 8.7-10.3 = 95156-3) PROTEIN, TOTAL, SERUM 6.6 g/dL 6.0-8.5 (test code = 2885-2) ALBUMIN, SERUM (test code 4.3 g/dL 3.8-4.8 = 1751-7) GLOBULIN, TOTAL (test code 2.3 g/dL 1.5-4.5 = 47643-3) A/G RATIO (test code = 1.2-2.2 175-0) BILIRUBIN, TOTAL (test 0.4 mg/dL 0.0-1.2 code = 1974-2) ALKALINE PHOSPHATASE, See_Comment H SERUM (test code = 6768-6) Please note reference interval change [Automated mess age] The system which Spotted nerated this result tra nsmitted reference range : 44 - 121 IU/L. The refer ence range was not used to interpret this result as normal/abnormal . AST (SGOT) (test code = See_Comment [Au tomated message] The 1919-09) system which Spotted nerated this result tra nsmitted reference range : 0 - 40 IU/L. The refer ence range was not used to interpret this result as normal/abnormal . ALT (SGPT) (test code = See_Comment [Au tomated message] The 1741-07) system which Spotted nerated this result tra nsmitted reference range : 0 - 32 IU/L. The refer ence range was not used to interpret this result as normal/abnormal . SYED (test code = SYED) [facility] results reported in Eastern Time. [facility] Clinical Information:SRC:Blo od, venous ?[facility] Source of Specimen:Blood, venous Lab Interpretation (test Abnormal code = 53771-3) Haley [facility] WITH DIFFERENTIAL/[id number] 18:12:00 Test Item Value Reference Range Interpretation Comments WHITE BLOOD CELL See_Comment [Automated (WBC) COUNT (test message] T he code = 6690-2) system which generated this result transmit clarisa reference range : 3.4 - 10.8 x10E3/uL. The reference range was not used to interpret this result as normal/abnormal . RED BLOOD CELL (RBC) See_Comment [Autom ated COUNT (test code = message] The ) system which generated this result transmit clarisa reference range : 3.77 - 5.28 x10E6/uL. The reference range was not used to interpret this result as normal/abnormal . HEMOGLOBIN (test code 13.1 g/dL 11.1-15.9 = 718-7) HEMATOCRIT (test code 37.9 % 34.0-46.6 = 4544-3) MCV (test code = 80 fL 79-97 787-2) MCH (test code = 27.6 pg 26.6-33.0 785-6) MCHC (test code = 34.6 g/dL 31.5-35.7 786-4) RDW (test code = 21.1 % 11.7-15.4 H 788-0) PLATELETS (test code See_Comment [Autom ated = 777-3) message] The system which generated this result transmit clarisa reference range : 150 - 450 x10E3/uL. The reference range was not used to interpret this result as normal/abnormal . NEUTROPHILS (test 50 % Not Estab. code = 770-8) LYMPHS (test code = 37 % Not Estab. 736-9) MONOCYTES (test code 11 % Not Estab. = 5905-5) EOS (test code = 1 % Not Estab. 713-8) BASOS (test code = 1 % Not Estab. 706-2) NEUTROPHILS See_Comment [Automated (ABSOLUTE) (test code messag e] The = 751-8) system which generated this result transmit clarisa reference range : 1.4 - 7.0 x10E3/uL. The reference range was not used to interpret this result as normal/abnormal . LYMPHS (ABSOLUTE) See_Comment [Automate d (test code = 731-0) message] The system which generated this result transmit clarisa reference range : 0.7 - 3.1 x10E3/uL. The reference range was not used to interpret this result as normal/abnormal . MONOCYTES(ABSOLUTE) See_Comment [Automa clarisa (test code = 742-7) message] The system which generated this result transmit clarisa reference range : 0.1 - 0.9 x10E3/uL. The reference range was not used to interpret this result as normal/abnormal . EOS (ABSOLUTE) (test See_Comment [Autom ated code = 711-2) message] The system which generated this result transmit clarisa reference range : 0.0 - 0.4 x10E3/uL. The reference range was not used to interpret this result as normal/abnormal . BASO (ABSOLUTE) (test See_Comment [Auto mated code = 704-7) message] The system which generated this result transmit clarisa reference range : 0.0 - 0.2 x10E3/uL. The reference range was not used to interpret this result as normal/abnormal . SYED (test code = SYED) [facility] results reported in Eastern Time. [facility] Clinical Information:SRC :Blood, venous ?[facility] Source of Specimen:Blood, venous Lab Interpretation Abnormal (test code = 97045-0) [facility]/[id number] 19:55:00 Test Item Value Reference Range Interpretation Comments WHITE BLOOD CELL See_Comment [Automated (WBC) COUNT (test message] T he code = 6690-2) system which generated this result transmitted reference range : 3.4 - 10.8 x10E3/uL. The reference range was not used to interpret this result as normal/abnormal . RED BLOOD CELL (RBC) See_Comment [Autom ated COUNT (test code = message] The 789-8) system which generated this result transmitted reference range : 3.77 - 5.28 x10E6/uL. The reference range was not used to interpret this result as normal/abnormal . HEMOGLOBIN (test code 14.1 g/dL 11.1-15.9 = 718-7) HEMATOCRIT (test code 40.7 % 34.0-46.6 = 4544-3) MCV (test code = 78 fL 79-97 L 787-2) MCH (test code = 27.1 pg 26.6-33.0 785-6) MCHC (test code = 34.6 g/dL 31.5-35.7 786-4) RDW (test code = 18.4 % 11.7-15.4 H 788-0) PLATELETS (test code See_Comment [Autom ated = 777-3) message] The system which generated this result transmitted reference range : 150 - 450 x10E3/uL. The reference range was not used to interpret this result as normal/abnormal . NEUTROPHILS (test 63 % Not Estab. code = 770-8) LYMPHS (test code = 29 % Not Estab. 736-9) MONOCYTES (test code 6 % Not Estab. = 5905-5) EOS (test code = 2 % Not Estab. 713-8) BASOS (test code = 0 % Not Estab. 706-2) NEUTROPHILS See_Comment [Automated (ABSOLUTE) (test code messag e] The = 751-8) system which generated this result transmitted reference range : 1.4 - 7.0 x10E3/uL. The reference range was not used to interpret this result as normal/abnormal . LYMPHS (ABSOLUTE) See_Comment [Automate d (test code = 731-0) message] The system which generated this result transmitted reference range : 0.7 - 3.1 x10E3/uL. The reference range was not used to interpret this result as normal/abnormal . MONOCYTES(ABSOLUTE) See_Comment [Automa clarisa (test code = 742-7) message] The system which generated this result transmitted reference range : 0.1 - 0.9 x10E3/uL. The reference range was not used to interpret this result as normal/abnormal . EOS (ABSOLUTE) (test See_Comment [Autom ated code = 711-2) message] The system which generated this result transmitted reference range : 0.0 - 0.4 x10E3/uL. The reference range was not used to interpret this result as normal/abnormal . BASO (ABSOLUTE) (test See_Comment [Auto mated code = 704-7) message] The system which generated this result transmitted reference range : 0.0 - 0.2 x10E3/uL. The reference range was not used to interpret this result as normal/abnormal . SYED (test code = SYED) [facility] results reported in Eastern Time. [facility] Clinical Information:SRC: Blood, venous CBC with in 72 hours of treatment ? [facility] Source of Specimen:Blood, venous CBC with Lab Interpretation Abnormal (test code = 85216-0) Haley Owens [id number] 11:16:18Surgical Pathology Report Case: [id number] Authorizing Provider: Altaf Biswas MD Collected: 11/30/2020 12:06 PM Ordering Location: [facility] Received: 11/30/2020 02:07 PM SERVICES Pathologist: Barno Robertson MD Specimen: Large Intestine, Colon - Sigmoid, Sigmoid Colon ,Upper Rectum ,End Block small bowel The addendum is be ing issued to report the results of immunohistochemistry (IHC) testing for Mismatch Repair (MMR) Proteins. The diagnosis remains unchanged.IHC testing for all four MMR proteins was performed on selected block A15 with appropriate controls.RESULTSMLH1: Intact nuclear expressionMSH2: Intact nuclear expre ssionMSH6: Intact nuclear expressionPMS2: Intact nuclear expressionIHC InterpretationNo loss of nuclear expression of MMR proteins: low probability of microsatellite instability-high (MSI-H)# #There are exceptions to the above IHC interpretations. These results should not be considered in isolation, and clinical correlation with genetic counseling is recommended to assess the need for germline testing.Addendum electronically signed by Baron Robertson MD on 12/12/2020 at 11:16 AMPART A SIGMOID COLON AND SMALL INTESTINE, RESECTION :INVASIVE MODERATELY DIFFERENTIATED ADENOCARCINOMA, ARISING INTHE SIGMOID COLON, 8.5 CMTUMOR EXTENDS EXTENDS THROUGH THE SEROSAL SURFACE AND IS ADHERENT TO A SEGMENT OF SMALL INTESTINE. NEGATIVE FOR LYMPHOVASCULAR INVASIONNEGATIVE FOR PERINEURAL INVASIONTHIRTY-FOUR BENIGN LYMPH NODES, NEGATIVE FOR CARCINOMA (0/34) DIVERTICULARS DISEASE.MMR IMMUNOPROFILING TO FOLLOW IN ADDENDUM. AJCC CLASSIFICATION [id number]. SEE SYNOPTIC REPORT Signing Pathologist Direct Yovani ne Line: [phone] signed by Baron Robertson MD on 12/06/2020 at 11:09 AMCOLON AND RECTUM: Resection, Including Transanal Disk Excision of Rectal NeoplasmsCOLON AND RECTUM: RESECTION - A8th Edition - Protocol posted: 04/22/2019SPECIMEN Procedure: EN BLOC RESECTION SIGMOID C OLON AND SMALL INTESTINE TUMOR Tumor Site: Sigmoid colon Histologic Type: Adenocarcinoma Histologic Grade: G2: Moderately differentiated Tumor Size: Greatest dimension (Centimeters): 8.5 cm Additional Dimension (Centimeters): 7.1 cm Additional Dimension (Centimeters): 3 cm Tumor Extension: Tumor directly invades adjacent structures: SMALL INTESTINE Macroscopic Tumor Perforation: Present Lymphovascular Invasion: Not identified Perineural Invasion: Not identified Tumor Budding: Number of tumor buds in one 'hotspot' field (total number in area = 0.785 mm2): 4 : Low score (0-4) Type of Polyp in Which Invasive Carcinoma Arose: Tubular adenoma Treatment Effect: No known presurgical therapy MARGINS Margins: Proximal Margin: Uninvolved by invasive carcinoma, high grade dysplasia / intramucosal carcinoma, and low grade dysplasia Distance of Tumor from Margin: 6.0 cm Distal Margin: Uninvolved by invasive carcinoma, high grade dysplasia / intramucosal carcinoma, and low grade dysplasia Distance of Tumor from Margin: 10 cm Radial (circumferential) or Mesenteric Margin: Uninvolved by invasive carcinoma Distance of Tumor from Margin: 5.5 cm Other Margin: small intestinal margins. Margin Status: Uninvolved by invasive carcinoma LYMPH NODES Number of Lymph Nodes Involved: 0 Number of Lymph Nodes Examined: 34 Tumor Deposits: Not identified PATHOLOGIC STAGE CLASSIFICATION (pTNM, AJCC 8th Edition) Primary Tumor (pT): pT4b Regional Lymph Nodes (pN): pN0 ADDITIONAL FINDINGS Additional Findings: Adenoma(s) Additional Findings: Diverticulosis 87871, 54980, 22453N6Ngfkkeocunbzyo of large intestine with perforation without bleedingSigmoid colon, upper rectum, en bloc small bowelA. Received fresh labeled with the patient's name, medical record number and "large intestine, colon-sigmoid" is a segment of rectosigmoid colon measuring 21 cm in length and ranging 2-4.8 cm in diameter. There is a 6.8 cm in length by 2.2 cm in diameter segment of small bowel adhesed to the sigmoid colon, 6.5 cm from the proximal margin. There is a moderate amount of attached, focally congested mesentery. A mesorectum is not present.Adjacent to the adhesed small bowel is a 2 x 0.6 cm area of disruption surrounded by an abundantamount of adhesions. The specimen is opened to reveal an 8.5 x 7.1 x 3 cm ill-defined, circumferential, george-pink to garcia mass that communicates with the area of disruption and is 6 cm from the proximal margin, greater than 10 cm from the distal margin, 7.2 cm from the closest colonic mesenteric margin, 5.5 cm from the small bowel mesenteric margin, 2.5 cm from one small bowel stapled margin, and 3 cm from the opposite small bowel stapled margin. Cut sectioning of the mass reveals invasion through the muscularis propria into the pericolic fat and involves the small bowel serosa, but not the small bowel mucosa.There are multiple diverticula throughout the specimen are 1.4 cm from the distal marginand 1.6 cm from the proximal margin. Within the mass is a diverticulum with abscess, there is a second abscess adjacent to the mass that abuts the serosa and is surrounded by indurated adipose tissue.The wall thickness ranges 0.2-1.7 cm. There are multiple pink-garcia lymph nodes ranging 0.2-1.2 cm.Application Tester sections are submitted.Ink code:Blue: DefectGreen: Serosa of the colonBlack: Serosa of small bowelOrange: Distal colonic marginSection code:A1: Application Tester of proximal distal marginA2: Entire small bowel margin closer to the mass, en faceA3: Entire small bowel margin further away from the mass, en faceA4: Closest small bowel mesenteric margin to mass, en faceA5: Closest colonic mesenteric margin to mass, en faceA6-A8: Mass to defectA9-A 11: Mass to small bowelA 12: Mass with adjacent abscess to colonic serosaA 13: Mass with diverticulum and abscessA 14: Mass to colonic serosaA 15:Mass to uninvolved mucosaA 16-A 18: 1 lymph node trisected in each cassetteA 19: 5 intact lymph nodesA 20: 1 lymph node, trisectedA 21: 5 intact lymph nodesA 22: 1 lymph node, trisectedA 23: 5 possibleintact lymph nodesA 24: 1 lymph node, trisectedA 25-A 35:1 lymph node bisected in each cassette KIMBERLEE Adair PA ([facility])cmPerformed.The interpretation of this case included the use of immunohistochemistry or special stains.BLOCK A15- MSH2, MSH6, PMS2, XTA4Bsefdxq Slides Examined: In-house known positive controls were evaluated along with the test tissue. These control slides run alongside of the patients sample show appropriate staining. Internal positive and negative controls when available are evaluated Immunohistochemistry technical testing was performed at [facility], Pathology Laboratory where it was developed and its performance characteristics were determined. It has not been cleared or approved by the U.S. Food and Drug Administration. The FDA has determined that such clearance or approval is not necessary. The test is used for clinical purposes. It should not be regarded as investigational or for research. This laboratory is certified under the Clinical Laboratory Improvement Amendments of 1988 (CLIA-88) as qualified to perform high complexity clinical laboratory testing.[facility], Department of Pathology, [address] [place] [address], [facility]ouM[facility], Department of Pathology, [address] [place] [address], [facility]wgLos [facility], Department of Pathology, [address] [place] [address], Bwlaaladei1997-10-07 04:59:23 Test Item Value Reference Range Interpretation Comments Phosphorus (test code = 3.7 mg/dL 2.3-4.7 2777-1) SYED (test code = SYED) Predictive Maintenance Technician MARSHA Kelly Lab Interpretation (test Normal code = 50163-4) [facility] 04:59:23 Test Item Value Reference Range Interpretation Comments PHOSPHORUS (BEAKER) (test code = 3.7 mg/dL 2.3-4.7 604) Predictive Maintenance Technician MARSHA BRIDGES asic Metabolic [id number] 04:59:22 Test Item Value Reference Range Interpretation Comments Sodium (test code = 140 meq/L 969-144 3493-2) Potassium (test code = 4.3 meq/L 3.5-5.1 2823-3) Chloride (test code = 108 meq/L 98-107 H 2075-0) CO2 (test code = 23 meq/L 22-29 2028-9) BUN (test code = 8 mg/dL 7-21 3094-0) Creatinine (test code 0.62 mg/dL 0.57-1.25 = 2160-0) Glucose (test code = 111 mg/dL 70-105 H 2345-7) Calcium (test code = 9.2 mg/dL 8.4-10.2 25314-7) EGFR (test code = 97 mL/min/1.73 [place] [address]-2) NOT ACCURATE CREATININE CLEARANCE IN PREDICTING GLOMERULAR FILTRATION RATE . ESTIMATED GFR I S NOT APPLICABLE FOR DIALYSIS PATIENTS. SYED (test code = SYED) Predictive Maintenance Technician MARSHA Kelly Lab Interpretation Abnormal (test code = 34347-2) [facility] HospitalMagnesium2021-10-07 04:59:22 Test Item Value Reference Range Interpretation Comments Magnesium (test code = 2.0 mg/dL 1.6-2.6 23201-2) SYED (test code = SYED) Predictive Maintenance Technician MARSHA Kelly Lab Interpretation (test Normal code = 17621-0) [facility] HospitalBASIC METABOLIC [id number] 04:59:22 Test Item Value Reference Range Interpretation Comments SODIUM (BEAKER) 140 meq/L 136-145 (test code = 381) POTASSIUM (BEAKER) 4.3 meq/L 3.5-5.1 (test code = 379) CHLORIDE (BEAKER) 108 meq/L 98-107 H (test code = 382) CO2 (BEAKER) (test 23 meq/L 22-29 code = 355) BLOOD UREA NITROGEN 8 mg/dL 7-21 (BEAKER) (test code = 354) CREATININE (BEAKER) 0.62 mg/dL 0.57-1.25 (test code = 358) GLUCOSE RANDOM 111 mg/dL 70-105 H (BEAKER) (test code = 652) CALCIUM (BEAKER) 9.2 mg/dL 8.4-10.2 (test code = 697) EGFR (BEAKER) (test 97 mL/min/1.73 ESTIMA CLARISA GFR IS code = 1092) sq m NOT ACCURATE CREATININE CLEARANCE IN PREDICTING GLOMERULAR FILTRATION RATE . ESTIMATED GFR I S NOT APPLICABLE FOR DIALYSIS PATIEN TS. Predictive Maintenance Technician ID - CYRUS [id number] 04:59:22 Test Item Value Reference Range Interpretation Comments MAGNESIUM (BEAKER) (test code = 2.0 mg/dL 1.6-2.6 627) Predictive Maintenance Technician ID - CYRUS MHemoglobin and uqgppculef2706-30-55 04:35:33 Test Item Value Reference Range Interpretation Comments Hemoglobin (test code 8.4 See_Comment L [Auto mated = 786-4) message] The system which generated this result transmit clarisa reference range : 11.2 - 15.7 GM/ DL. The reference range was not u sed to interpret th is result as normal/abnormal . Hematocrit (test code 28.9 % 34.1-44.9 L = 4544-3) SYED (test code = SYED) Predictive Maintenance Technician ID - [id number] Lab Interpretation Abnormal (test code = 98189-3) [facility] HospitalHEMOGLOBIN AND [id number] 04:35:33 Test Item Value Reference Range Interpretation Comments HEMOGLOBIN (BEAKER) (test code = 8.4 GM/DL 11.2-15.7 L 410) HEMATOCRIT (BEAKER) (test code = 28.9 % 34.1-44.9 L 411) Predictive Maintenance Technician ID - 6000POC-Glucose cvvay2837-61-91 08:29:47 Test Item Value Reference Range Interpretation Comments POC-Glucose Meter (test 105 mg/dL 70-110 : TE STED AT [facility] code = 1538) [address] [facility], 770 30: Predictive Maintenance Technician/Techni mg ID = [id number] for MEHDI MCPHERSON AUGUSTINE Lab Interpretation (test Normal code = 27880-3) [facility] HospitalPOCT-GLUCOSE [id number] 08:29:47 Test Item Value Reference Range Interpretation Comments POC-GLUCOSE METER 105 mg/dL 70-110 : TESTED A T [facility] 6720 (BEAKER) (test code = NOEL [facility], 1538) [address]: Predictive Maintenance Technician/Techni mg ID = [id number] for TRISTAN BUTTERFIELD SARS-CoV2/RT-PCR (Asymptomatic ONLY)2020-11-29 16:12:17 Test Item Value Reference Range Interpretation Comments SARS-COV2/RT-PCR Negative Not Detected, (test code = Negative, See 51544-9) external report for linked test SARS-COV-2 [facility] PERFORMING [facility] (test code = 39708-3) SYED (test code = Negative result for this SYED) test determines that SARS-CoV-2 RNA was not present in the specimen above the Limit of Detection (LOD). However, Negative results do not preclude SARS-CoV-2 infection and should not be used as the sole basis for treatment or patient management decisions. Negative results must be combined with clinical observations, patient history, and epidemiological information. A false negative result may occur if a specimen is improperly collected, transported or handled. A false negative result should be considered if patient's recent exposures or clinical presentation indicate that COVID-19 (SARS-CoV-2) is likely and diagnostic tests for other causes of illness are negative. Re-testing should be considered in cases of suspected false negatives. The limit of detection for this assay is 800 copies/mL. This SARS CoV-2 test is a real-time RT-PCR test intended for the qualitative detection of nucleic acid from SARS-CoV-2 in a nasopharyngeal swab specimen collected from individuals suspected of COVID-19 by their healthcare provider. This test has not been Food and Drug Administration (FDA) cleared or approved. This is a modified version of an approved Emergency Use Authorization (EUA) and is in the process of review by the FDA. Once authorized by the FDA, the issued EUA will be effective until the declaration that circumstances exist justifying the authorization of the emergency use of in vitro diagnostic tests for detection and/or diagnosis of COVID-19 is terminated under Section 564(b)(2) of the Act or the EUA is revoked under Section 564(g) of the Act. Fact Sheet for Healthcare Providers:https://www.[employer]/sites/default/f darion/product/documents/F act_Sheet_HC_Providers_L biz_HEVN-GuV-8.pdf Fact Sheet for Healthcare Patients:https://www.Datumate/sites/default/fi les/product/documents/Fa ct_Sheet_Patients_Lyra_S ARS-CoV-2.pdf Performing Laboratory:[facility] [place] [address] [facility] ([facility])2020-11-29 16:12:17 Test Item Value Reference Range Interpretation Comments SARS-COV2/RT-PCR (test Negative Not Detected, Negative, code = 4766680) See external report for linked test SARS-COV-[address] [facility] (test code = 8666667) Negative result for this test determines that SARS-CoV-2 RNA was not present in the specimen above the Limit of Detection (LOD). However, Negative results do not preclude SARS-CoV-2 infection and should not be used as the sole basis for treatment or patient management decisions. Negative results mustbe combined with clinical observations, patient history, and epidemiological information. A false negative result may occur if a specimen is improperly collected, transported or handled. A false negative result should be considered if patient's recent exposures or clinical presentation indicate that COVID-19 (SARS-CoV-2) is likely and diagnostic tests for other causes of illness are negative. Re-testing should be considered in cases of suspected false negatives.The limit of detection for this assay is 800 copies/mL.This SARS CoV-2 test is a real-time RT-PCR test intended for the qualitative detection of nucleic acid from SARS-CoV-2 in a nasopharyngeal swab specimen collected from individuals susp ected of COVID-19 by their healthcare provider.This test has not been Food and Drug Administration (FDA) cleared or approved. This is a modified version of an approved Emergency Use Authorization (EUA) and is in the process of review by the FDA. Once authorized by the FDA, the issued EUA will be effective until the declaration that circumstances exist justifying the authorization of the emergency use of in vitro diagnostic tests for detection and/or diagnosis of COVID-19 is terminated under Section 564(b)(2) of the Act or the EUA is revoked under Section 564(g) of the Act.Fact Sheet for Healthcare Providers:https://www.PT [employer]/sites/default/files/product/documents/Fact_Shee o_YJ_Zgrlilanp_Qwim_WDGR-AhT-8.pdfFact Sheet for Healthcare Patients:https://www.[employer]/sites/default/files/product/ documents/Iuzz_Famib_Lchakccc_Wkay_QRXP-KpP-2.pdfPerforming Laboratory:[address] [id number] and screen, vxoqwglfb3943-67-83 13:02:00 Test Item Value Reference Range Interpretation Comments ABO/RH AUTOMATED (BEAKER) (test B POSITIVE code = 2260) Ab Scrn (test code = 890-4) NEGATIVE [facility]-Glucose [id number] 16:44:00 Test Item Value Reference Range Interpretation Comments POC-Glucose Meter (test 120 mg/dL 70-110 H : TE STED AT [facility] code = 1538) [address] [place] [address], [facility] 30: Predictive Maintenance Technician/Techni mg ID = [id number] for Zoya (pca2), Rina Lab Interpretation (test Abnormal code = 33533-9) [facility] HospitalPO-Glucose [id number] 16:44:00 Test Item Value Reference Range Interpretation Comments POC-Glucose Meter (test 120 mg/dL 70-110 H : TE STED AT [facility] code = 1538) [address] [place] [address], 770 30: Predictive Maintenance Technician/Techni mg ID = [id number] for Zoya (pca2), Rina Lab Interpretation (test Abnormal code = 96146-9) [facility]-Glucose [id number] 16:44:00 Test Item Value Reference Range Interpretation Comments POC-Glucose Meter (test 120 mg/dL 70-110 H : TE STED AT [facility] code = 1538) [address] [facility] [place] [address] 30: Predictive Maintenance Technician/Techni mg ID = [id number] for Zoya (pca2), Rina Lab Interpretation (test Abnormal code = 04770-4) [facility] [id number] 16:44:00 Test Item Value Reference Range Interpretation Comments POC-GLUCOSE METER 120 mg/dL 70-110 H : TESTED A T [facility] 6720 (BEAKER) (test code = [facility] Claribel [facility], 1538) [address]: Predictive Maintenance Technician/Techni mg ID = [id number] for Tr inh (pca2), Rina POCT-GLUCOSE [id number] 11:58:00 Test Item Value Reference Range Interpretation Comments POC-GLUCOSE METER 201 mg/dL 70-110 H : TESTED A T [facility] 6720 (BEAKER) (test code = [facility] Claribel [facility], 1538) [address]: Predictive Maintenance Technician/Techni mg ID = [id number] for Tr inh (pca2), Rina Comprehensive metabolic [id number] 07:10:00 Test Item Value Reference Range Interpretation Comments Protein, Total (test 6.5 See_Comment [Autom ated code = 2885-2) message] The system which generated this result transmit clarisa reference range : 6.0 - 8.3 gm/dL . The reference range was not u sed to interpret th is result as normal/abnormal . Albumin (test code = 3.0 g/dL 3.5-5.0 L 61806-3) Alkaline Phosphatase 149 U/L 40-150 (test code = 6768-6) Total Bilirubin (test 0.4 mg/dL 0.2-1.2 code = 1975-2) Sodium (test code = 137 meq/L 377-877 8542-2) Potassium (test code 3.2 meq/L 3.5-5.1 L = 2823-3) Chloride (test code = 103 meq/L 98-107 2074-0) CO2 (test code = 27 meq/L 22-29 2027-9) BUN (test code = 8 mg/dL 7-21 3094-0) Creatinine (test code 0.75 mg/dL 0.57-1.25 = 2160-0) Glucose (test code = 101 mg/dL 70-105 2345-7) Calcium (test code = 8.5 mg/dL 8.4-10.2 60246-9) AST (test code = 10 U/L -0-8) ALT (test code = 8 U/L 2-6) EGFR (test code = 78 mL/min/1.[place] [address]-4) NOT ACCURATE CREATININE CLEARANCE IN PREDICTING GLOMERULAR FILTRATION RATE . ESTIMATED GFR I S NOT APPLICABLE FOR DIALYSIS PATIEN TS. LYNCH (test code = SYED) Predictive Maintenance Technician ID - PIAYA L Lab Interpretation Abnormal (test code = 17728-2) [facility] HospitalCom[facility] metabolic [id number] 07:10:00 Test Item Value Reference Range Interpretation Comments Protein, Total (test 6.5 See_Comment [Autom ated code = 2885-2) message] The system which generated this result transmit clarisa reference range : 6.0 - 8.3 gm/dL . The reference range was not u sed to interpret th is result as normal/abnormal . Albumin (test code = 3.0 g/dL 3.5-5.0 L 88563-0) Alkaline Phosphatase 149 U/L 40-150 (test code = 6768-6) Total Bilirubin (test 0.4 mg/dL 0.2-1.2 code = 1975-2) Sodium (test code = 137 meq/L 289-255 6594-2) Potassium (test code 3.2 meq/L 3.5-5.1 L = 2823-3) Chloride (test code = 103 meq/L 98-107 5-0) CO2 (test code = 27 meq/L 22-29 2027-9) BUN (test code = 8 mg/dL 7- 3094-0) Creatinine (test code 0.75 mg/dL 0.57-1.25 = 2160-0) Glucose (test code = 101 mg/dL 70-105 2345-7) Calcium (test code = 8.5 mg/dL 8.4-10.2 33803-8) AST (test code = 10 U/L -34 1919-8) ALT (test code = 8 U/L 2-6) EGFR (test code = 78 mL/min/1.[place] [address]-6) NOT ACCURATE CREATININE CLEARANCE IN PREDICTING GLOMERULAR FILTRATION RATE . ESTIMATED GFR I S NOT APPLICABLE FOR DIALYSIS PATIEN TSLuciano SYED (test code = SYED) Predictive Maintenance Technician ID - PIAYA L Lab Interpretation Abnormal (test code = 99216-7) [facility] HospitalComprehensive metabolic [id number] 07:10:00 Test Item Value Reference Range Interpretation Comments Protein, Total (test 6.5 See_Comment [Autom ated code = 2885-2) message] The system which generated this result transmit clarisa reference range : 6.0 - 8.3 gm/dL . The reference range was not u sed to interpret th is result as normal/abnormal . Albumin (test code = 3.0 g/dL 3.5-5.0 L 78268-7) Alkaline Phosphatase 149 U/L 40-150 (test code = 6768-6) Total Bilirubin (test 0.4 mg/dL 0.2-1.2 code = 1974-2) Sodium (test code = 137 meq/L 558-474 8461-2) Potassium (test code 3.2 meq/L 3.5-5.1 L = 2823-3) Chloride (test code = 103 meq/L 98-107 2075-0) CO2 (test code = 27 meq/L 22-29 8-9) BUN (test code = 8 mg/dL 7-21 3094-0) Creatinine (test code 0.75 mg/dL 0.57-1.25 = 2160-0) Glucose (test code = 101 mg/dL 70-105 2345-7) Calcium (test code = 8.5 mg/dL 8.4-10.2 46658-6) AST (test code = 10 U/L 5-34 1920-8) ALT (test code = 8 U/L 6-55 1742-6) EGFR (test code = 78 mL/min/1.[place] [address]-7) NOT ACCURATE CREATININE CLEARANCE IN PREDICTING GLOMERULAR FILTRATION RATE . ESTIMATED GFR I S NOT APPLICABLE FOR DIALYSIS PATIEN TS. SYED (test code = SYED) Predictive Maintenance Technician ID - PIAYA L Lab Interpretation Abnormal (test code = 53496-4) [facility]Com[facility] [id number] 07:10:00 Test Item Value Reference Range Interpretation Comments Protein, Total (test 6.5 See_Comment [Autom ated code = 2885-2) message] The system which generated this result transmit clarisa reference range : 6.0 - 8.3 gm/dL . The reference range was not u sed to interpret th is result as normal/abnormal . Albumin (test code = 3.0 g/dL 3.5-5.0 L 44462-1) Alkaline Phosphatase 149 U/L 40-150 (test code = 6768-6) Total Bilirubin (test 0.4 mg/dL 0.2-1.2 code = 1975-2) Sodium (test code = 137 meq/L 735-386 9841-2) Potassium (test code 3.2 meq/L 3.5-5.1 L = 2823-3) Chloride (test code = 103 meq/L 98-107 2075-0) CO2 (test code = 27 meq/L 22-29 2028-9) BUN (test code = 8 mg/dL 7-21 3094-0) Creatinine (test code 0.75 mg/dL 0.57-1.25 = 2160-0) Glucose (test code = 101 mg/dL 70-105 2345-7) Calcium (test code = 8.5 mg/dL 8.4-10.2 19737-4) AST (test code = 10 U/L 5-34 1920-8) ALT (test code = 8 U/L 6-55 1742-6) EGFR (test code = 78 mL/min/1.73 [place] [address]-5) NOT ACCURATE CREATININE CLEARANCE IN PREDICTING GLOMERULAR FILTRATION RATE . ESTIMATED GFR I S NOT APPLICABLE FOR DIALYSIS PATIEN TS. SYED (test code = SYED) Predictive Maintenance Technician ID - PIAYA L Lab Interpretation Abnormal (test code = 76413-2) [facility] [id number] 07:10:00 Test Item Value Reference Range Interpretation Comments TOTAL PROTEIN 6.5 gm/dL 6.0-8.3 (BEAKER) (test code = 770) ALBUMIN (BEAKER) 3.0 g/dL 3.5-5.0 L (test code = 1145) ALKALINE PHOSPHATASE 149 U/L 40-150 (BEAKER) (test code = 346) BILIRUBIN TOTAL 0.4 mg/dL 0.2-1.2 (BEAKER) (test code = 377) SODIUM (BEAKER) (test 137 meq/L 136-145 code = 381) POTASSIUM (BEAKER) 3.2 meq/L 3.5-5.1 L (test code = 379) CHLORIDE (BEAKER) 103 meq/L 98-107 (test code = 382) CO2 (BEAKER) (test 27 meq/L 22-29 code = 355) BLOOD UREA NITROGEN 8 mg/dL 7-21 (BEAKER) (test code = 354) CREATININE (BEAKER) 0.75 mg/dL 0.57-1.25 (test code = 358) GLUCOSE RANDOM 101 mg/dL 70-105 (BEAKER) (test code = 652) CALCIUM (BEAKER) 8.5 mg/dL 8.4-10.2 (test code = 697) AST (SGOT) (BEAKER) 10 U/L 5-34 (test code = 353) ALT (SGPT) (BEAKER) 8 U/L 6-55 (test code = 347) EGFR (BEAKER) (test 78 mL/min/1.73 ESTIMA CLARISA GFR IS code = 1092) sq m NOT ACCURATE CREATININE CLEARANCE IN PREDICTING GLOMERULAR FILTRATION RATE . ESTIMATED GFR I S NOT APPLICABLE FOR DIALYSIS PATIEN TS. Predictive Maintenance Technician ID - PIAYA LCBC with platelet count + automated [id number] 06:22:00 Test Item Value Reference Range Interpretation Comments WBC (test code = 6690-2) 7.2 See_Comment [A utomated message] The system [employer] generated this result transmitted ref erence range: 3.5 - 10 .5 K/L. The refe rence range was not u sed to interpret this result as normal/abnor mal. RBC (test code = 789-8) 3.26 See_Comment L [Au tomated message] The system [employer] generated this result transmitted ref erence range: 3.93 - 5 .22 M/L. The refe rence range was not u sed to interpret this result as normal/abnor mal. MCHC (test code = 786-4) 29.8 See_Comment L [A utomated message] The system [employer] generated this result transmitted ref erence range: 32.2 - 3 5.5 GM/DL. The refe rence range was not u sed to interpret this result as normal/abnor mal. Hematocrit (test code = 25.5 % 34.1-44.9 L 4544-3) MCV (test code = 787-2) 78.2 fL 79.4-94.8 L MCH (test code = 785-6) 23.3 pg 25.6-32.2 L RDW (test code = 788-0) 17.6 % 11.7-14.4 H Platelets (test code = 402 See_Comment [Aut omated message] 777-3) The system [employer] generated this result transmitted ref erence range: 150 - 45 0 K/CU MM. The referen ce range was not u sed to interpret this result as normal/abnor mal. MPV (test code = 8.6 fL 9.4-12.3 L 43148-3) nRBC (test code = 413) 0 See_Comment [Aut omated message] The system [employer] generated this result transmitted ref erence range: 0 - 0 /1 00 WBC. The refere nce range was not u sed to interpret this result as normal/abnor mal. % Neutros (test code = 71 % 429) % Lymphs (test code = 20 % 430) % Monos (test code = 6 % 431) % Eos (test code = 432) 2 % % Baso (test code = 437) 0 % # Neutros (test code = 5.11 See_Comment [Aut omated message] 670) The system [employer] generated this result transmitted ref erence range: 1.56 - 6 .13 K/L. The refe rence range was not u sed to interpret this result as normal/abnor mal. # Lymphs (test code = 1.44 See_Comment [Auto mated message] 414) The system [employer] generated this result transmitted ref erence range: 1.18 - 3 .74 K/L. The refe rence range was not u sed to interpret this result as normal/abnor mal. # Monos (test code = 0.40 See_Comment H [Autom ated message] 415) The system [employer] generated this result transmitted ref erence range: 0.24 - 0 .36 K/L. The refe rence range was not u sed to interpret this result as normal/abnor mal. # Eos (test code = 416) 0.15 See_Comment [Au tomated message] The system [employer] generated this result transmitted ref erence range: 0.04 - 0 .36 K/L. The refe rence range was not u sed to interpret this result as normal/abnor mal. # Baso (test code = 417) 0.02 See_Comment [A utomated message] The system [employer] generated this result transmitted ref erence range: 0.01 - 0 .08 K/L. The refe rence range was not u sed to interpret this result as normal/abnor mal. Immature 1 % 0-1 Granulocytes-Relative (test code = 2801) Lab Interpretation (test Abnormal code = 85906-4) [facility] with platelet count + automated [id number] 06:22:00 Test Item Value Reference Range Interpretation Comments WBC (test code = 6690-2) 7.2 See_Comment [A utomated message] The system [employer] generated this result transmitted ref erence range: 3.5 - 10 .5 K/L. The refe rence range was not u sed to interpret this result as normal/abnor mal. RBC (test code = 789-8) 3.26 See_Comment L [Au tomated message] The system [employer] generated this result transmitted ref erence range: 3.93 - 5 .22 M/L. The refe rence range was not u sed to interpret this result as normal/abnor mal. MCHC (test code = 786-4) 29.8 See_Comment L [A utomated message] The system [employer] generated this result transmitted ref erence range: 32.2 - 3 5.5 GM/DL. The refe rence range was not u sed to interpret this result as normal/abnor mal. Hematocrit (test code = 25.5 % 34.1-44.9 L 4544-3) MCV (test code = 787-2) 78.2 fL 79.4-94.8 L MCH (test code = 785-6) 23.3 pg 25.6-32.2 L RDW (test code = 788-0) 17.6 % 11.7-14.4 H Platelets (test code = 402 See_Comment [Aut omated message] 777-3) The system [employer] generated this result transmitted ref erence range: 150 - 45 0 K/CU MM. The referen ce range was not u sed to interpret this result as normal/abnor mal. MPV (test code = 8.6 fL 9.4-12.3 L 11063-6) nRBC (test code = 413) 0 See_Comment [Aut omated message] The system [employer] generated this result transmitted ref erence range: 0 - 0 /1 00 WBC. The refere nce range was not u sed to interpret this result as normal/abnor mal. % Neutros (test code = 71 % 429) % Lymphs (test code = 20 % 430) % Monos (test code = 6 % 431) % Eos (test code = 432) 2 % % Baso (test code = 437) 0 % # Neutros (test code = 5.11 See_Comment [Aut omated message] 670) The system [employer] generated this result transmitted ref erence range: 1.56 - 6 .13 K/L. The refe rence range was not u sed to interpret this result as normal/abnor mal. # Lymphs (test code = 1.44 See_Comment [Auto mated message] 414) The system [employer] generated this result transmitted ref erence range: 1.18 - 3 .74 K/L. The refe rence range was not u sed to interpret this result as normal/abnor mal. # Monos (test code = 0.40 See_Comment H [Autom ated message] 415) The system [employer] generated this result transmitted ref erence range: 0.24 - 0 .36 K/L. The refe rence range was not u sed to interpret this result as normal/abnor mal. # Eos (test code = 416) 0.15 See_Comment [Au tomated message] The system [employer] generated this result transmitted ref erence range: 0.04 - 0 .36 K/L. The refe rence range was not u sed to interpret this result as normal/abnor mal. # Baso (test code = 417) 0.02 See_Comment [A utomated message] The system [employer] generated this result transmitted ref erence range: 0.01 - 0 .08 K/L. The refe rence range was not u sed to interpret this result as normal/abnor mal. Immature 1 % 0-1 Granulocytes-Relative (test code = 2801) Lab Interpretation (test Abnormal code = 10371-1) [facility] with platelet count + automated [id number] 06:22:00 Test Item Value Reference Range Interpretation Comments WBC (test code = 6690-2) 7.2 See_Comment [A utomated message] The system [employer] generated this result transmitted ref erence range: 3.5 - 10 .5 K/L. The refe rence range was not u sed to interpret this result as normal/abnor mal. RBC (test code = 789-8) 3.26 See_Comment L [Au tomated message] The system [employer] generated this result transmitted ref erence range: 3.93 - 5 .22 M/L. The refe rence range was not u sed to interpret this result as normal/abnor mal. MCHC (test code = 786-4) 29.8 See_Comment L [A utomated message] The system [employer] generated this result transmitted ref erence range: 32.2 - 3 5.5 GM/DL. The refe rence range was not u sed to interpret this result as normal/abnor mal. Hematocrit (test code = 25.5 % 34.1-44.9 L 4544-3) MCV (test code = 787-2) 78.2 fL 79.4-94.8 L MCH (test code = 785-6) 23.3 pg 25.6-32.2 L RDW (test code = 788-0) 17.6 % 11.7-14.4 H Platelets (test code = 402 See_Comment [Aut omated message] 487-3) The system [employer] generated this result transmitted ref erence range: 150 - 45 0 K/CU MM. The referen ce range was not u sed to interpret this result as normal/abnor mal. MPV (test code = 8.6 fL 9.4-12.3 L 12853-6) nRBC (test code = 413) 0 See_Comment [Aut omated message] The system [employer] generated this result transmitted ref erence range: 0 - 0 /1 00 WBC. The refere nce range was not u sed to interpret this result as normal/abnor mal. % Neutros (test code = 71 % 429) % Lymphs (test code = 20 % 430) % Monos (test code = 6 % 431) % Eos (test code = 432) 2 % % Baso (test code = 437) 0 % # Neutros (test code = 5.11 See_Comment [Aut omated message] 670) The system [employer] generated this result transmitted ref erence range: 1.56 - 6 .13 K/L. The refe rence range was not u sed to interpret this result as normal/abnor mal. # Lymphs (test code = 1.44 See_Comment [Auto mated message] 414) The system [employer] generated this result transmitted ref erence range: 1.18 - 3 .74 K/L. The refe rence range was not u sed to interpret this result as normal/abnor mal. # Monos (test code = 0.40 See_Comment H [Autom ated message] 415) The system [employer] generated this result transmitted ref erence range: 0.24 - 0 .36 K/L. The refe rence range was not u sed to interpret this result as normal/abnor mal. # Eos (test code = 416) 0.15 See_Comment [Au tomated message] The system [employer] generated this result transmitted ref erence range: 0.04 - 0 .36 K/L. The refe rence range was not u sed to interpret this result as normal/abnor mal. # Baso (test code = 417) 0.02 See_Comment [A utomated message] The system [employer] generated this result transmitted ref erence range: 0.01 - 0 .08 K/L. The refe rence range was not u sed to interpret this result as normal/abnor mal. Immature 1 % 0-1 Granulocytes-Relative (test code = 2801) Lab Interpretation (test Abnormal code = 54714-2) [facility] with platelet count + automated [id number] 06:22:00 Test Item Value Reference Range Interpretation Comments WBC (test code = 6690-2) 7.2 See_Comment [A utomated message] The system [employer] generated this result transmitted ref erence range: 3.5 - 10 .5 K/L. The refe rence range was not u sed to interpret this result as normal/abnor mal. RBC (test code = 789-8) 3.26 See_Comment L [Au tomated message] The system [employer] generated this result transmitted ref erence range: 3.93 - 5 .22 M/L. The refe rence range was not u sed to interpret this result as normal/abnor mal. MCHC (test code = 786-4) 29.8 See_Comment L [A utomated message] The system [employer] generated this result transmitted ref erence range: 32.2 - 3 5.5 GM/DL. The refe rence range was not u sed to interpret this result as normal/abnor mal. Hematocrit (test code = 25.5 % 34.1-44.9 L 4544-3) MCV (test code = 787-2) 78.2 fL 79.4-94.8 L MCH (test code = 785-6) 23.3 pg 25.6-32.2 L RDW (test code = 788-0) 17.6 % 11.7-14.4 H Platelets (test code = 402 See_Comment [Aut omated message] 777-3) The system [employer] generated this result transmitted ref erence range: 150 - 45 0 K/CU MM. The referen ce range was not u sed to interpret this result as normal/abnor mal. MPV (test code = 8.6 fL 9.4-12.3 L 22500-0) nRBC (test code = 413) 0 See_Comment [Aut omated message] The system [employer] generated this result transmitted ref erence range: 0 - 0 /1 00 WBC. The refere nce range was not u sed to interpret this result as normal/abnor mal. % Neutros (test code = 71 % 429) % Lymphs (test code = 20 % 430) % Monos (test code = 6 % 431) % Eos (test code = 432) 2 % % Baso (test code = 437) 0 % # Neutros (test code = 5.11 See_Comment [Aut omated message] 670) The system [employer] generated this result transmitted ref erence range: 1.56 - 6 .13 K/L. The refe rence range was not u sed to interpret this result as normal/abnor mal. # Lymphs (test code = 1.44 See_Comment [Auto mated message] 414) The system [employer] generated this result transmitted ref erence range: 1.18 - 3 .74 K/L. The refe rence range was not u sed to interpret this result as normal/abnor mal. # Monos (test code = 0.40 See_Comment H [Autom ated message] 415) The system [employer] generated this result transmitted ref erence range: 0.24 - 0 .36 K/L. The refe rence range was not u sed to interpret this result as normal/abnor mal. # Eos (test code = 416) 0.15 See_Comment [Au tomated message] The system [employer] generated this result transmitted ref erence range: 0.04 - 0 .36 K/L. The refe rence range was not u sed to interpret this result as normal/abnor mal. # Baso (test code = 417) 0.02 See_Comment [A utomated message] The system [employer] generated this result transmitted ref erence range: 0.01 - 0 .08 K/L. The refe rence range was not u sed to interpret this result as normal/abnor mal. Immature 1 % 0-1 Granulocytes-Relative (test code = 2801) Lab Interpretation (test Abnormal code = 54243-8) [facility] W/PLT COUNT & AUTO [id number] 06:22:00 Test Item Value Reference Range Interpretation Comments WHITE BLOOD CELL COUNT (BEAKER) 7.2 K/ L 3.5-10.5 (test code = 775) RED BLOOD CELL COUNT (BEAKER) 3.26 M/ L 3.93-5.22 L (test code = 761) HEMOGLOBIN (BEAKER) (test code = 7.6 GM/DL 11.2-15.7 L 410) HEMATOCRIT (BEAKER) (test code = 25.5 % 34.1-44.9 L 411) MEAN CORPUSCULAR VOLUME (BEAKER) 78.2 fL 79.4-94.8 L (test code = 753) MEAN CORPUSCULAR HEMOGLOBIN 23.3 pg 25.6-32.2 L (BEAKER) (test code = 751) MEAN CORPUSCULAR HEMOGLOBIN CONC 29.8 GM/DL 32.2-35.5 L (BEAKER) (test code = 752) RED CELL DISTRIBUTION WIDTH 17.6 % 11.7-14.4 H (BEAKER) (test code = 412) PLATELET COUNT (BEAKER) (test 402 K/CU MM 150-450 code = 756) MEAN PLATELET VOLUME (BEAKER) 8.6 fL 9.4-12.3 L (test code = 754) NUCLEATED RED BLOOD CELLS 0 /100 WBC 0-0 (BEAKER) (test code = 413) NEUTROPHILS RELATIVE PERCENT 71 % (BEAKER) (test code = 429) LYMPHOCYTES RELATIVE PERCENT 20 % (BEAKER) (test code = 430) MONOCYTES RELATIVE PERCENT 6 % (BEAKER) (test code = 431) EOSINOPHILS RELATIVE PERCENT 2 % (BEAKER) (test code = 432) BASOPHILS RELATIVE PERCENT 0 % (BEAKER) (test code = 437) NEUTROPHILS ABSOLUTE COUNT 5.11 K/ L 1.56-6.13 (BEAKER) (test code = 670) LYMPHOCYTES ABSOLUTE COUNT 1.44 K/ L 1.18-3.74 (BEAKER) (test code = 414) MONOCYTES ABSOLUTE COUNT (BEAKER) 0.40 K/ L 0.24-0.36 H (test code = 415) EOSINOPHILS ABSOLUTE COUNT 0.15 K/ L 0.04-0.36 (BEAKER) (test code = 416) BASOPHILS ABSOLUTE COUNT (BEAKER) 0.02 K/ L 0.01-0.08 (test code = 417) IMMATURE GRANULOCYTES-RELATIVE 1 % 0-1 PERCENT (BEAKER) (test code = 2801) CT, DRAINAGE, [id number] 16:54:00Reason for exam:->diverticular [facility]cessJ[facility] : 1955 Sex: FFINAL REPORT CT guided drainage catheter placement, 09/14/2020 Clinical History: Pelvic diverticular abscess. Modality: CT. Superintendent Stations: Zoya. Program Paraprofessional: None. Sedation: Versed 1 mg and fentanyl 50 mcg was given intravenously for moderate sedation. The patient's vital signs were monitored throughout the procedure and recorded to the patient's medical record by the nurse. Total intra-service time of sedation was 20 minutes. Estimated Blood Loss: Less than 1 ml. Technique: After informed consent was obtained, which included the risks of bleeding, infection, injury to adjacent structures/bowel, adverse medication reaction, the patient's pelvis was scanned, after reviewing the previous CT from outside institution. This exam was performed according to our departmental dose-optimization program which includes automated exposure control, adjustment of the mA and/or kV according to patient size and/or use of iterative reconstruction technique. The fluid collection in the anterior pelvis adjacent to the dome of the bladder, below the sigmoid colon was localized. After the skin was prepped and draped in the usual sterile manner, and local anesthesia was achieved with 1% lidocaine, a 19-gauge needle was advanced into the fluid collection under CT guidance. After a small skin incision was made, a guidewire was advanced into the fluid collection. Subsequently, a soft tissue tract was created with 8 [place] dilator. After the tract was dilated, an 8.5 [place] all-purpose drainage catheter was placed into the fluid collection. The wire was then removed, and the pigtail of the catheter was locked. Approximately 22 cc of thick purulent fluid was drained. The fluid sample was sent for laboratory evaluation. Evaluation of the area after the procedure reveals the pigtail to terminate within the midportion of the fluid collection, which has significantly decreased in size. The catheter was then secured onto the skin with suture. A VALENTIN bulb was attached to the catheter, to drain via suction. The patient tolerated the procedure well, without immediate complications. The patient's vital signs remained stable throughout the procedure. Patient disposition: The patient was discharged from the department in stable condition. Impression: Successful and uncomplicated CT guided drainage catheter placement into pelvic abscess with conscious sedation. Signed: Jp Kennyeport Verified Date/Time: 09/14/2020 16:54:02 Reading Location: [facility] P048 Angio Body Reading Room REHENSIVE METABOLIC [id number] 06:09:00 Test Item Value Reference Range Interpretation Comments TOTAL PROTEIN 6.5 gm/dL 6.0-8.3 (BEAKER) (test code = 770) ALBUMIN (BEAKER) 3.1 g/dL 3.5-5.0 L (test code = 1145) ALKALINE PHOSPHATASE 166 U/L 40-150 H (BEAKER) (test code = 346) BILIRUBIN TOTAL 0.4 mg/dL 0.2-1.2 (BEAKER) (test code = 377) SODIUM (BEAKER) (test 137 meq/L 136-145 code = 381) POTASSIUM (BEAKER) 3.3 meq/L 3.5-5.1 L (test code = 379) CHLORIDE (BEAKER) 102 meq/L 98-107 (test code = 382) CO2 (BEAKER) (test 27 meq/L 22-29 code = 355) BLOOD UREA NITROGEN 8 mg/dL 7-21 (BEAKER) (test code = 354) CREATININE (BEAKER) 0.69 mg/dL 0.57-1.25 (test code = 358) GLUCOSE RANDOM 108 mg/dL 70-105 H (BEAKER) (test code = 652) CALCIUM (BEAKER) 8.8 mg/dL 8.4-10.2 (test code = 697) AST (SGOT) (BEAKER) 11 U/L 5-34 (test code = 353) ALT (SGPT) (BEAKER) 8 U/L 6-55 (test code = 347) EGFR (BEAKER) (test 86 mL/min/1.73 ESTIMA CLARISA GFR IS code = 1092) sq m NOT ACCURATE CREATININE CLEARANCE IN PREDICTING GLOMERULAR FILTRATION RATE . ESTIMATED GFR I S NOT APPLICABLE FOR DIALYSIS PATIEN TS. Predictive Maintenance Technician ID - PIAYA LProthrombin time/[id number] 04:51:00 Test Item Value Reference Interpretation Comments Range Protime (test code = 15.9 See_Comment H [Autom ated 5902-2) message] The system which generated this result transmitted reference range : 11.9 - 14.2 seconds. The reference range was not used to interpret this result as normal/abnormal . INR (test code = 1.29 See_Comment [Automated 6301-6) message] The system which generated this result transmitted reference range : <=5.90. The reference range was not used to interpret this result as normal/abnormal . SYED (test code = RECOMMENDED SYED) COUMADIN/WARFARIN INR THERAPY RANGESSTANDARD DOSE: 2.0 - 3.0 Includes: PROPHYLAXIS for venous thrombosis, systemic embolization; TREATMENT for venous thrombosis and/or pulmonary embolus.HIGH RISK: Target INR is 2.5-3.5 for patients with mechanical heart valves. Lab Interpretation Abnormal (test code = 86363-8) [facility]/[id number] 04:51:00 Test Item Value Reference Interpretation Comments Range Protime (test code = 15.9 See_Comment H [Autom ated 5902-2) message] The system which generated this result transmitted reference range : 11.9 - 14.2 seconds. The reference range was not used to interpret this result as normal/abnormal . INR (test code = 1.29 See_Comment [Automated 6301-6) message] The system which generated this result transmitted reference range : <=5.90. The reference range was not used to interpret this result as normal/abnormal . SYED (test code = RECOMMENDED SYED) COUMADIN/WARFARIN INR THERAPY RANGESSTANDARD DOSE: 2.0 - 3.0 Includes: PROPHYLAXIS for venous thrombosis, systemic embolization; TREATMENT for venous thrombosis and/or pulmonary embolus.HIGH RISK: Target INR is 2.5-3.5 for patients with mechanical heart valves. Lab Interpretation Abnormal (test code = 31072-3) [facility] HospitalPro[facility] time/[id number] 04:51:00 Test Item Value Reference Interpretation Comments Range Protime (test code = 15.9 See_Comment H [Autom ated 5902-2) message] The system which generated this result transmitted reference range : 11.9 - 14.2 seconds. The reference range was not used to interpret this result as normal/abnormal . INR (test code = 1.29 See_Comment [Automated 6301-6) message] The system which generated this result transmitted reference range : <=5.90. The reference range was not used to interpret this result as normal/abnormal . SYED (test code = RECOMMENDED SYED) COUMADIN/WARFARIN INR THERAPY RANGESSTANDARD DOSE: 2.0 - 3.0 Includes: PROPHYLAXIS for venous thrombosis, systemic embolization; TREATMENT for venous thrombosis and/or pulmonary embolus.HIGH RISK: Target INR is 2.5-3.5 for patients with mechanical heart valves. Lab Interpretation Abnormal (test code = 55181-3) [facility] HospitalPro[facility]/[id number] 04:51:00 Test Item Value Reference Interpretation Comments Range Protime (test code = 15.9 See_Comment H [Autom ated 5902-2) message] The system which generated this result transmitted reference range : 11.9 - 14.2 seconds. The reference range was not used to interpret this result as normal/abnormal . INR (test code = 1.29 See_Comment [Automated 6301-6) message] The system which generated this result transmitted reference range : <=5.90. The reference range was not used to interpret this result as normal/abnormal . SYED (test code = RECOMMENDED SYED) COUMADIN/WARFARIN INR THERAPY RANGESSTANDARD DOSE: 2.0 - 3.0 Includes: PROPHYLAXIS for venous thrombosis, systemic embolization; TREATMENT for venous thrombosis and/or pulmonary embolus.HIGH RISK: Target INR is 2.5-3.5 for patients with mechanical heart valves. Lab Interpretation Abnormal (test code = 44212-8) [facility] HospitalPROTHROMBIN TIME/[id number] 04:51:00 Test Item Value Reference Range Interpretation Comments PROTIME (BEAKER) 15.9 seconds 11.9-14.2 H (test code = 759) INR (BEAKER) (test 1.29 See_Comment [Automat ed message] code = 370) The system whic h generated this result transmitted ref erence range: <=5.90. The reference range was not used to int erpret this result as normal/abnormal . RECOMMENDED COUMADIN/WARFARIN INR THERAPY RANGESSTANDARD DOSE: 2.0 - 3.0 Includes: PROPHYLAXIS forvenous thrombosis, systemic embolization; TREATMENT for venous thrombosis and/or pulmonary embolus.HIGH RISK: Target INR is 2.5-3.5 for patients with mechanical heart valves.CBC W/PLT COUNT & AUTO DIFFERENTIAL 2020-09-14 04:30:00 Test Item Value Reference Range Interpretation Comments WHITE BLOOD CELL COUNT (BEAKER) 8.2 K/ L 3.5-10.5 (test code = 775) RED BLOOD CELL COUNT (BEAKER) 3.19 M/ L 3.93-5.22 L (test code = 761) HEMOGLOBIN (BEAKER) (test code = 7.5 GM/DL 11.2-15.7 L 410) HEMATOCRIT (BEAKER) (test code = 24.8 % 34.1-44.9 L 411) MEAN CORPUSCULAR VOLUME (BEAKER) 77.7 fL 79.4-94.8 L (test code = 753) MEAN CORPUSCULAR HEMOGLOBIN 23.5 pg 25.6-32.2 L (BEAKER) (test code = 751) MEAN CORPUSCULAR HEMOGLOBIN CONC 30.2 GM/DL 32.2-35.5 L (BEAKER) (test code = 752) RED CELL DISTRIBUTION WIDTH 17.4 % 11.7-14.4 H (BEAKER) (test code = 412) PLATELET COUNT (BEAKER) (test 383 K/CU MM 150-450 code = 756) MEAN PLATELET VOLUME (BEAKER) 8.4 fL 9.4-12.3 L (test code = 754) NUCLEATED RED BLOOD CELLS 0 /100 WBC 0-0 (BEAKER) (test code = 413) NEUTROPHILS RELATIVE PERCENT 72 % (BEAKER) (test code = 429) LYMPHOCYTES RELATIVE PERCENT 18 % (BEAKER) (test code = 430) MONOCYTES RELATIVE PERCENT 7 % (BEAKER) (test code = 431) EOSINOPHILS RELATIVE PERCENT 2 % (BEAKER) (test code = 432) BASOPHILS RELATIVE PERCENT 1 % (BEAKER) (test code = 437) NEUTROPHILS ABSOLUTE COUNT 5.94 K/ L 1.56-6.13 (BEAKER) (test code = 670) LYMPHOCYTES ABSOLUTE COUNT 1.48 K/ L 1.18-3.74 (BEAKER) (test code = 414) MONOCYTES ABSOLUTE COUNT (BEAKER) 0.55 K/ L 0.24-0.36 H (test code = 415) EOSINOPHILS ABSOLUTE COUNT 0.14 K/ L 0.04-0.36 (BEAKER) (test code = 416) BASOPHILS ABSOLUTE COUNT (BEAKER) 0.04 K/ L 0.01-0.08 (test code = 417) IMMATURE GRANULOCYTES-RELATIVE 1 % 0-1 PERCENT (BEAKER) (test code = 2801) COMPREHENSIVE METABOLIC [id number] 06:16:00 Test Item Value Reference Range Interpretation Comments TOTAL PROTEIN 6.9 gm/dL 6.0-8.3 (BEAKER) (test code = 770) ALBUMIN (BEAKER) 3.2 g/dL 3.5-5.0 L (test code = 1145) ALKALINE PHOSPHATASE 175 U/L 40-150 H (BEAKER) (test code = 346) BILIRUBIN TOTAL 0.4 mg/dL 0.2-1.2 (BEAKER) (test code = 377) SODIUM (BEAKER) (test 137 meq/L 136-145 code = 381) POTASSIUM (BEAKER) 3.1 meq/L 3.5-5.1 L (test code = 379) CHLORIDE (BEAKER) 99 meq/L 98-107 (test code = 382) CO2 (BEAKER) (test 27 meq/L 22-29 code = 355) BLOOD UREA NITROGEN 8 mg/dL 7-21 (BEAKER) (test code = 354) CREATININE (BEAKER) 0.63 mg/dL 0.57-1.25 (test code = 358) GLUCOSE RANDOM 109 mg/dL 70-105 H (BEAKER) (test code = 652) CALCIUM (BEAKER) 9.0 mg/dL 8.4-10.2 (test code = 697) AST (SGOT) (BEAKER) 9 U/L 5-34 (test code = 353) ALT (SGPT) (BEAKER) 7 U/L 6-55 (test code = 347) EGFR (BEAKER) (test 95 mL/min/1.73 ESTIMA CLARISA GFR IS code = 1092) sq m NOT ACCURATE CREATININE CLEARANCE IN PREDICTING GLOMERULAR FILTRATION RATE . ESTIMATED GFR I S NOT APPLICABLE FOR DIALYSIS PATIEN TS. Predictive Maintenance Technician ID - [facility] W/PLT COUNT & AUTO [id number] 05:54:00 Test Item Value Reference Range Interpretation Comments WHITE BLOOD CELL COUNT (BEAKER) 9.6 K/ L 3.5-10.5 (test code = 775) RED BLOOD CELL COUNT (BEAKER) 3.59 M/ L 3.93-5.22 L (test code = 761) HEMOGLOBIN (BEAKER) (test code = 8.4 GM/DL 11.2-15.7 L 410) HEMATOCRIT (BEAKER) (test code = 27.6 % 34.1-44.9 L 411) MEAN CORPUSCULAR VOLUME (BEAKER) 76.9 fL 79.4-94.8 L (test code = 753) MEAN CORPUSCULAR HEMOGLOBIN 23.4 pg 25.6-32.2 L (BEAKER) (test code = 751) MEAN CORPUSCULAR HEMOGLOBIN CONC 30.4 GM/DL 32.2-35.5 L (BEAKER) (test code = 752) RED CELL DISTRIBUTION WIDTH 17.1 % 11.7-14.4 H (BEAKER) (test code = 412) PLATELET COUNT (BEAKER) (test 472 K/CU MM 150-450 H code = 756) MEAN PLATELET VOLUME (BEAKER) 8.4 fL 9.4-12.3 L (test code = 754) NUCLEATED RED BLOOD CELLS 0 /100 WBC 0-0 (BEAKER) (test code = 413) NEUTROPHILS RELATIVE PERCENT 75 % (BEAKER) (test code = 429) LYMPHOCYTES RELATIVE PERCENT 17 % (BEAKER) (test code = 430) MONOCYTES RELATIVE PERCENT 6 % (BEAKER) (test code = 431) EOSINOPHILS RELATIVE PERCENT 1 % (BEAKER) (test code = 432) BASOPHILS RELATIVE PERCENT 0 % (BEAKER) (test code = 437) NEUTROPHILS ABSOLUTE COUNT 7.14 K/ L 1.56-6.13 H (BEAKER) (test code = 670) LYMPHOCYTES ABSOLUTE COUNT 1.66 K/ L 1.18-3.74 (BEAKER) (test code = 414) MONOCYTES ABSOLUTE COUNT (BEAKER) 0.56 K/ L 0.24-0.36 H (test code = 415) EOSINOPHILS ABSOLUTE COUNT 0.12 K/ L 0.04-0.36 (BEAKER) (test code = 416) BASOPHILS ABSOLUTE COUNT (BEAKER) 0.04 K/ L 0.01-0.08 (test code = 417) IMMATURE GRANULOCYTES-RELATIVE 1 % 0-1 PERCENT (BEAKER) (test code = 2801) SARS-CoV2/RT-PCR (Asymptomatic ONLY)2020-09-13 02:14:00 Test Item Value Reference Range Interpretation Comments SARS-COV2/RT-PCR Negative Not Detected, (test code = Negative, See 42826-8) external report for linked test SARS-COV-2 [facility] (test code = 78144-6) SYED (test code = Negative result for this SYED) test determines that SARS-CoV-2 RNA was not present in the specimen above the Limit of Detection (LOD). However, Negative results do not preclude SARS-CoV-2 infection and should not be used as the sole basis for treatment or patient management decisions. Negative results must be combined with clinical observations, patient history, and epidemiological information. A false negative result may occur if a specimen is improperly collected, transported or handled. A false negative result should be considered if patient's recent exposures or clinical presentation indicate that COVID-19 (SARS-CoV-2) is likely and diagnostic tests for other causes of illness are negative. Re-testing should be considered in cases of suspected false negatives. The limit of detection for this assay is 800 copies/mL. This SARS CoV-2 test is a real-time RT-PCR test intended for the qualitative detection of nucleic acid from SARS-CoV-2 in a nasopharyngeal swab specimen collected from individuals suspected of COVID-19 by their healthcare provider. This test has not been Food and Drug Administration (FDA) cleared or approved. This is a modified version of an approved Emergency Use Authorization (EUA) and is in the process of review by the FDA. Once authorized by the FDA, the issued EUA will be effective until the declaration that circumstances exist justifying the authorization of the emergency use of in vitro diagnostic tests for detection and/or diagnosis of COVID-19 is terminated under Section 564(b)(2) of the Act or the EUA is revoked under Section 564(g) of the Act. Fact Sheet for Healthcare Providers:https://www.qu [employer]el[employer]sites/default/f darion/product/documents/F act_Sheet_HC_Providers_L chv_KSHN-ShV-3.pdf Fact Sheet for Healthcare Patients:https://www.[employer]/sites/default/fi les/product/documents/Fa ct_Sheet_Patients_[place]_S ARS-CoV-2.pdf Performing Laboratory:[facility]CoV2/RT-PCR (Asymptomatic ONLY)2020-09-13 02:14:00 Test Item Value Reference Range Interpretation Comments SARS-COV2/RT-PCR Negative Not Detected, (test code = Negative, See 84518-0) external report for linked test SARS-COV-2 [facility] (test code = 35306-3) SYED (test code = Negative result for this SYED) test determines that SARS-CoV-2 RNA was not present in the specimen above the Limit of Detection (LOD). However, Negative results do not preclude SARS-CoV-2 infection and should not be used as the sole basis for treatment or patient management decisions. Negative results must be combined with clinical observations, patient history, and epidemiological information. A false negative result may occur if a specimen is improperly collected, transported or handled. A false negative result should be considered if patient's recent exposures or clinical presentation indicate that COVID-19 (SARS-CoV-2) is likely and diagnostic tests for other causes of illness are negative. Re-testing should be considered in cases of suspected false negatives. The limit of detection for this assay is 800 copies/mL. This SARS CoV-2 test is a real-time RT-PCR test intended for the qualitative detection of nucleic acid from SARS-CoV-2 in a nasopharyngeal swab specimen collected from individuals suspected of COVID-19 by their healthcare provider. This test has not been Food and Drug Administration (FDA) cleared or approved. This is a modified version of an approved Emergency Use Authorization (EUA) and is in the process of review by the FDA. Once authorized by the FDA, the issued EUA will be effective until the declaration that circumstances exist justifying the authorization of the emergency use of in vitro diagnostic tests for detection and/or diagnosis of COVID-19 is terminated under Section 564(b)(2) of the Act or the EUA is revoked under Section 564(g) of the Act. Fact Sheet for Healthcare Providers:https://www.[employer]/sites/default/f darion/product/documents/F act_Sheet_HC_Providers_L vep_YBLO-UhZ-8.pdf Fact Sheet for Healthcare Patients:https://www.[employer]/sites/default/fi les/product/documents/Fa ct_Sheet_Patients_[place]ra_S ARS-CoV-2.pdf Performing Laboratory:[facility] [place] [address] [facility]2020-09-13 02:14:00 Test Item Value Reference Range Interpretation Comments SARS-COV2/RT-PCR Negative Not Detected, (test code = Negative, See 84861-9) external report for linked test SARS-COV-2 [facility] (test code = 89789-6) SYED (test code = Negative result for this SYED) test determines that SARS-CoV-2 RNA was not present in the specimen above the Limit of Detection (LOD). However, Negative results do not preclude SARS-CoV-2 infection and should not be used as the sole basis for treatment or patient management decisions. Negative results must be combined with clinical observations, patient history, and epidemiological information. A false negative result may occur if a specimen is improperly collected, transported or handled. A false negative result should be considered if patient's recent exposures or clinical presentation indicate that COVID-19 (SARS-CoV-2) is likely and diagnostic tests for other causes of illness are negative. Re-testing should be considered in cases of suspected false negatives. The limit of detection for this assay is 800 copies/mL. This SARS CoV-2 test is a real-time RT-PCR test intended for the qualitative detection of nucleic acid from SARS-CoV-2 in a nasopharyngeal swab specimen collected from individuals suspected of COVID-19 by their healthcare provider. This test has not been Food and Drug Administration (FDA) cleared or approved. This is a modified version of an approved Emergency Use Authorization (EUA) and is in the process of review by the FDA. Once authorized by the FDA, the issued EUA will be effective until the declaration that circumstances exist justifying the authorization of the emergency use of in vitro diagnostic tests for detection and/or diagnosis of COVID-19 is terminated under Section 564(b)(2) of the Act or the EUA is revoked under Section 564(g) of the Act. Fact Sheet for Healthcare Providers:https://www.[employer]/sites/default/f darion/product/documents/F act_Sheet_HC_Providers_L sfy_JNLL-XqY-4.pdf Fact Sheet for Healthcare Patients:https://www.[employer]/sites/default/fi les/product/documents/Fa ct_Sheet_Patients_Lyra_S ARS-CoV-2.pdf Performing Laboratory:[facility], [place] [address] [place], [place] [address]ARS-COV2/RT-PCR ([facility])2020-09-13 02:14:00 Test Item Value Reference Range Interpretation Comments SARS-COV2/RT-PCR (test Negative Not Detected, Negative, code = 5805922) See external report for linked test SARS-COV-[address] [facility] (test code = 5739143) Negative result for this test determines that SARS-CoV-2 RNA was not present in the specimen above the Limit of Detection (LOD). However, Negative results do not preclude SARS-CoV-2 infection and should not be used as the sole basis for treatment or patient management decisions. Negative results mustbe combined with clinical observations, patient history, and epidemiological information. A false negative result may occur if a specimen is improperly collected, transported or handled. A false negative result should be considered if patient's recent exposures or clinical presentation indicate that COVID-19 (SARS-CoV-2) is likely and diagnostic tests for other causes of illness are negative. Re-testing should be considered in cases of suspected false negatives.The limit of detection for this assay is 800 copies/mL.This SARS CoV-2 test is a real-time RT-PCR test intended for the qualitative detection of nucleic acid from SARS-CoV-2 in a nasopharyngeal swab specimen collected from individuals susp ected of COVID-19 by their healthcare provider.This test has not been Food and Drug Administration (FDA) cleared or approved. This is a modified version of an approved Emergency Use Authorization (EUA) and is in the process of review by the FDA. Once authorized by the FDA, the issued EUA will be effective until the declaration that circumstances exist justifying the authorization of the emergency use of in vitro diagnostic tests for detection and/or diagnosis of COVID-19 is terminated under Section 564(b)(2) of the Act or the EUA is revoked under Section 564(g) of the Act.Fact Sheet for Healthcare Providers:https://www.[employer]/sites/default/files/product/documents/Fact_Shee g_AP_Lgpipxcuk_Glbt_UATH-ViV-0.pdfFact Sheet for Healthcare Patients:https://www.[employer]/sites/default/files/product/ documents/Jpjz_Mvxiy_Jimqfasv_Aith_OYRG-ZpA-0.pdfPerforming Laboratory:[place] [address], [place] [address]JWFFISRKHEMCC METABOLIC [id number] 22:37:00 Test Item Value Reference Range Interpretation Comments TOTAL PROTEIN 7.9 gm/dL 6.0-8.3 (BEAKER) (test code = 770) ALBUMIN (BEAKER) 3.6 g/dL 3.5-5.0 (test code = 1145) ALKALINE PHOSPHATASE 208 U/L 40-150 H (BEAKER) (test code = 346) BILIRUBIN TOTAL 0.5 mg/dL 0.2-1.2 (BEAKER) (test code = 377) SODIUM (BEAKER) (test 137 meq/L 136-145 code = 381) POTASSIUM (BEAKER) 2.8 meq/L 3.5-5.1 L (test code = 379) CHLORIDE (BEAKER) 99 meq/L 98-107 (test code = 382) CO2 (BEAKER) (test 24 meq/L 22-29 code = 355) BLOOD UREA NITROGEN 9 mg/dL 7-21 (BEAKER) (test code = 354) CREATININE (BEAKER) 0.68 mg/dL 0.57-1.25 (test code = 358) GLUCOSE RANDOM 126 mg/dL 70-105 H (BEAKER) (test code = 652) CALCIUM (BEAKER) 9.6 mg/dL 8.4-10.2 (test code = 697) AST (SGOT) (BEAKER) 10 U/L 5-34 (test code = 353) ALT (SGPT) (BEAKER) 8 U/L 6-55 (test code = 347) EGFR (BEAKER) (test INSUFFIC IENT CLINICAL code = 1092) DATA TO CALCULA TE ESTIMATED GFR. Predictive Maintenance Technician ID - DBPT/[id number] 22:21:00 Test Item Value Reference Interpretation Comments Range Protime (test code = 15.6 See_Comment H [Autom ated 5902-2) message] The system which generated this result transmitted reference range : 11.9 - 14.2 seconds. The reference range was not used to interpret this result as normal/abnormal . INR (test code = 1.27 See_Comment [Automated 3031-6) message] The system which generated this result transmitted reference range : <=5.90. The reference range was not used to interpret this result as normal/abnormal . PTT (test code = 41.4 See_Comment H [Automated 29796-0) message] The system which generated this result transmitted reference range : 22.5 - 36.0 seconds. The reference range was not used to interpret this result as normal/abnormal . SYED (test code = RECOMMENDED SYED) COUMADIN/WARFARIN INR THERAPY RANGESSTANDARD DOSE: 2.0 - 3.0 Includes: PROPHYLAXIS for venous thrombosis, systemic embolization; TREATMENT for venous thrombosis and/or pulmonary embolus.HIGH RISK: Target INR is 2.5-3.5 for patients with mechanical heart valves. Lab Interpretation Abnormal (test code = 04344-0) [id number]:21[facility]00 Test Item Value Reference Interpretation Comments Range Protime (test code = 15.6 See_Comment H [Autom ated 5902-2) message] The system which generated this result transmitted reference range : 11.9 - 14.2 seconds. The reference range was not used to interpret this result as normal/abnormal . INR (test code = 1.27 See_Comment [Automated 6301-6) message] The system which generated this result transmitted reference range : <=5.90. The reference range was not used to interpret this result as normal/abnormal . PTT (test code = 41.4 See_Comment H [Automated 24450-0) message] The system which generated this result transmitted reference range : 22.5 - 36.0 seconds. The reference range was not used to interpret this result as normal/abnormal . SYED (test code = RECOMMENDED SYED) COUMADIN/WARFARIN INR THERAPY RANGESSTANDARD DOSE: 2.0 - 3.0 Includes: PROPHYLAXIS for venous thrombosis, systemic embolization; TREATMENT for venous thrombosis and/or pulmonary embolus.HIGH RISK: Target INR is 2.5-3.5 for patients with mechanical heart valves. Lab Interpretation Abnormal (test code = 63961-6) [facility][id number] 22:21:00 Test Item Value Reference Interpretation Comments Range Protime (test code = 15.6 See_Comment H [Autom ated 5902-2) message] The system which generated this result transmitted reference range : 11.9 - 14.2 seconds. The reference range was not used to interpret this result as normal/abnormal . INR (test code = 1.27 See_Comment [Automated 6301-6) message] The system which generated this result transmitted reference range : <=5.90. The reference range was not used to interpret this result as normal/abnormal . PTT (test code = 41.4 See_Comment H [Automated 95158-3) message] The system which generated this result transmitted reference range : 22.5 - 36.0 seconds. The reference range was not used to interpret this result as normal/abnormal . SYED (test code = RECOMMENDED SYED) COUMADIN/WARFARIN INR THERAPY RANGESSTANDARD DOSE: 2.0 - 3.0 Includes: PROPHYLAXIS for venous thrombosis, systemic embolization; TREATMENT for venous thrombosis and/or pulmonary embolus.HIGH RISK: Target INR is 2.5-3.5 for patients with mechanical heart valves. Lab Interpretation Abnormal (test code = 53928-0) [facility][id number] 22:21:00 Test Item Value Reference Interpretation Comments Range Protime (test code = 15.6 See_Comment H [Autom ated 5902-2) message] The system which generated this result transmitted reference range : 11.9 - 14.2 seconds. The reference range was not used to interpret this result as normal/abnormal . INR (test code = 1.27 See_Comment [Automated 6301-6) message] The system which generated this result transmitted reference range : <=5.90. The reference range was not used to interpret this result as normal/abnormal . PTT (test code = 41.4 See_Comment H [Automated 04531-6) message] The system which generated this result transmitted reference range : 22.5 - 36.0 seconds. The reference range was not used to interpret this result as normal/abnormal . SYED (test code = RECOMMENDED SYED) COUMADIN/WARFARIN INR THERAPY RANGESSTANDARD DOSE: 2.0 - 3.0 Includes: PROPHYLAXIS for venous thrombosis, systemic embolization; TREATMENT for venous thrombosis and/or pulmonary embolus.HIGH RISK: Target INR is 2.5-3.5 for patients with mechanical heart valves. Lab Interpretation Abnormal (test code = 60909-3) [facility][id number] 22:21:00 Test Item Value Reference Range Interpretation Comments PROTIME (BEAKER) (test 15.6 seconds 11.9-14.2 H code = 759) INR (BEAKER) (test 1.27 See_Comment [Automat ed code = 370) message] The sy stem which generated this result transmitted reference range : <=5.90. The reference range was not used to interpret this result as normal/abnormal . PARTIAL THROMBOPLASTIN 41.4 seconds 22.5-36.0 H TIME (BEAKER) (test code = 760) RECOMMENDED COUMADIN/WARFARIN INR THERAPY RANGESSTANDARD DOSE: 2.0 - 3.0 Includes: PROPHYLAXIS forvenous thrombosis, systemic embolization; TREATMENT for venous thrombosis and/or pulmonary embolus.HIGH RISK: Target INR is 2.5-3.5 for patients with mechanical heart valves.CBC W/PLT COUNT & AUTO DIFFERENTIAL 2020-09-12 22:12:00 Test Item Value Reference Range Interpretation Comments WHITE BLOOD CELL COUNT (BEAKER) 9.9 K/ L 3.5-10.5 (test code = 775) RED BLOOD CELL COUNT (BEAKER) 3.89 M/ L 3.93-5.22 L (test code = 761) HEMOGLOBIN (BEAKER) (test code = 9.2 GM/DL 11.2-15.7 L 410) HEMATOCRIT (BEAKER) (test code = 30.2 % 34.1-44.9 L 411) MEAN CORPUSCULAR VOLUME (BEAKER) 77.6 fL 79.4-94.8 L (test code = 753) MEAN CORPUSCULAR HEMOGLOBIN 23.7 pg 25.6-32.2 L (BEAKER) (test code = 751) MEAN CORPUSCULAR HEMOGLOBIN CONC 30.5 GM/DL 32.2-35.5 L (BEAKER) (test code = 752) RED CELL DISTRIBUTION WIDTH 17.1 % 11.7-14.4 H (BEAKER) (test code = 412) PLATELET COUNT (BEAKER) (test 481 K/CU MM 150-450 H code = 756) MEAN PLATELET VOLUME (BEAKER) 8.2 fL 9.4-12.3 L (test code = 754) NUCLEATED RED BLOOD CELLS 0 /100 WBC 0-0 (BEAKER) (test code = 413) NEUTROPHILS RELATIVE PERCENT 74 % (BEAKER) (test code = 429) LYMPHOCYTES RELATIVE PERCENT 18 % (BEAKER) (test code = 430) MONOCYTES RELATIVE PERCENT 6 % (BEAKER) (test code = 431) EOSINOPHILS RELATIVE PERCENT 1 % (BEAKER) (test code = 432) BASOPHILS RELATIVE PERCENT 0 % (BEAKER) (test code = 437) NEUTROPHILS ABSOLUTE COUNT 7.32 K/ L 1.56-6.13 H (BEAKER) (test code = 670) LYMPHOCYTES ABSOLUTE COUNT 1.77 K/ L 1.18-3.74 (BEAKER) (test code = 414) MONOCYTES ABSOLUTE COUNT (BEAKER) 0.58 K/ L 0.24-0.36 H (test code = 415) EOSINOPHILS ABSOLUTE COUNT 0.12 K/ L 0.04-0.36 (BEAKER) (test code = 416) BASOPHILS ABSOLUTE COUNT (BEAKER) 0.04 K/ L 0.01-0.08 (test code = 417) IMMATURE GRANULOCYTES-RELATIVE 1 % 0-1 PERCENT (BEAKER) (test code = 9741)
[2021-04-09 15:55] LABS: Urine Blood Trace-intact (Negative); Urine Glucose Negative (Negative); Urine Protein 1+ (Negative); Urine Specific Gravity >=1.030 (1.005-1.030)
[2021-04-09] MEDS ORDERED: NA CHLORIDE 0.9% 1,000 ML ONE (16:12)
[2021-04-09] MEDS ORDERED: ONDANSETRON 4 MG/2 ML VIAL ONE (16:12)
[2021-04-09 16:23] LABS: Absolute Lymphocytes (CBC) 0.7 K/uL (0.7-4.9); Hematocrit 33.1 % (36.0-45.0); Lymphocytes % 12.7 % (15.3-44.8); MPV 7.4 fL (7.6-11.3)
[2021-04-09 16:37] LABS: Bilirubin Total 1.1 mg/dL (0.2-1.0); Potassium 3.1 mmol/L (3.5-5.1)
[2021-04-09 16:48] LABS: Albumin 2.6 g/dL (3.4-5.0); Protein, Total 8.3 g/dL (6.4-8.2)
[2021-04-09 17:34] LABS: Calcium Oxalate Crystals- Ur MODERATE (NONE SEEN); Urine Bacteria >50 /HPF (<20)
[2021-04-09] MEDS ORDERED: CEFTRIAXONE 1000 MG/VIAL ONE ×2 (17:58→19:36)
--- NOTE | 2021-04-09 19:33 | ER ---
Nurse's Notes [facility] Name: Belinda Ralph Age: 65 yrs Sex: Female : 1955 Arrival Date: 04/09/2021 Time: 14:26 Bed 15 Private MD: Diagnosis: UTI/ Urinary tract infection, site not specified;Vomiting Presentation: 04/09 14:34 Chief complaint: Patient states: N/V/D x 3 weeks, currently on Chemo pill 2 weeks on, 1 jl7 week off, last pill on 04/02/21. Coronavirus screen: At this time, the client does not indicate any symptoms associated with coronavirus-19. Ebola Screen: No symptoms or risks identified at this time. Initial Sepsis Screen: Does the patient meet any 2 criteria? No. Patient's initial sepsis screen is negative. Does the patient have a suspected source of infection? No. Patient's initial sepsis screen is negative. Risk Assessment: Do you want to hurt yourself or someone else? Patient reports no desire to harm self or others. Onset of symptoms is unknown. 14:34 Method Of Arrival: Ambulatory [facility] 14:34 Acuity: FLO 3 jl7 Triage Assessment: 14:38 General: Appears in no apparent distress. uncomfortable, Behavior is calm, cooperative, jl7 appropriate for age. Pain: Denies pain. GI: Reports diarrhea, nausea, vomiting. Historical: - Allergies: 14:38 No Known Allergies; jl7 - Home Meds: 14:38 Chemo PO [Active]; jl7 - PMHx: 14:38 colon cancer; Diverticulitis; jl7 - PSHx: 14:38 Removal of small intestine; Cholecystectomy; jl7 - Immunization history:: Client reports having NOT received the Covid vaccine. - Social history:: Smoking status: Patient denies any tobacco usage or history of. Screenin:11 Abuse screen: Denies threats or abuse. Nutritional screening: No deficits noted. jh6 Tuberculosis screening: No symptoms or risk factors identified. Fall Risk None identified. Assessment: 15:10 General: Appears in no apparent distress. Behavior is calm, cooperative. Pain: Denies 6 pain. GI: Abdomen is round non-distended, obese, Abd is soft and non tender Reports nausea. : Reports blood in urine. Vital Signs: 14:34 BP 154 / 89; Pulse 109; Resp 17; Temp 97; Pulse Ox 98% on R/A; Weight 67.13 kg; Height jl7 4 ft. 11 in. (149.86 cm); Pain 0/10; 20:18 BP 117 / 72; Pulse 86; Resp 17 S; Pulse Ox 100% on R/A; Pain 0/10; lg3 14:34 Body Mass Index 29.89 (67.13 kg, 149.86 cm) 7 ED Course: 14:26 Patient arrived in ED. mr 14:36 Triage completed. jl7 14:38 Arm band placed on right wrist. jl7 14:59 Carla Kenny, RN is Primary Nurse. jh6 15:01 Chele Fischer NP is PHCP. pm1 15:01 Evert Agudelo MD is Attending Physician. pm1 15:11 No provider procedures requiring assistance completed. 6 19:00 Primary Nurse role handed off by Carla Kenny, DAR [facility] 19:29 Ruby Logan, DAR is Primary Nurse. lg3 20:18 Patient has correct armband on for positive identification. Bed in low position. Call lg3 light in reach. Side rails up X 1. 20:18 IV discontinued, intact, bleeding controlled, No redness/swelling at site. Pressure lg3 dressing applied. Administered Medications: 16:15 Drug: NS 0.9% 1000 ml Route: IV; Rate: 1000 ml; Site: right forearm; [facility] 20:19 Follow up: Response: No adverse reaction; IV Status: Completed infusion; IV Intake: lg3 1000ml 16:15 Drug: Zofran (Ondansetron) 4 mg Route: IVP; Site: right forearm; [facility] 19:29 Follow up: Response: No adverse reaction lg3 18:02 Drug: Rocephin (cefTRIAXone) 1 grams Route: IV; Rate: calculated rate; Site: right [facility] forearm; 18:27 Follow up: Response: No adverse reaction 6 20:19 Follow up: Response: No adverse reaction; IV Status: Completed infusion; IV Intake: lg3 100ml 19:48 Drug: Rocephin (cefTRIAXone) 1 grams Route: IM; Site: right gluteus; 3 19:48 Follow up: Response: No adverse reaction lg3 Intake: 20:19 IV: 100ml; Total: 100ml. lg3 20:19 IV: 1000ml; Total: 1100ml. lg3 Outcome: 19:33 Discharge ordered by . pm1 20:17 Discharged to home ambulatory, with family. lg3 20:17 Condition: improved 20:17 Discharge instructions given to patient, Instructed on discharge instructions, medication usage, Prescriptions given X 3. 20:19 Patient left the ED. lg3 Signatures: Geena Segura Amado, Chele, MOLD MAKER PLASTER MOLD MAKER PLASTER pm1 Ayla Herman, RN RN jl7 Ruby Logan RN RN lg3 Awa Ramirez 9 Carla Kenny RN RN jh6
--- NOTE | 2021-04-09 19:33 | EDPHYS ---
Physician Documentation [facility] Name: Belinda Ralph Age: 65 yrs Sex: Female : 1955 Arrival Date: 04/09/2021 Time: 14:26 Bed 15 Private MD: ED Physician Evert Agudelo HPI: 04/09 15:21 This 65 yrs old Female presents to ER via Ambulatory with complaints of Vomiting. pm1 15:21 The patient presents to the emergency department with vomiting. Onset: The pm1 symptoms/episode began/occurred 3 week(s) ago, and became worse 3 day(s) ago. Possible causes: Patient believes that she has a urinary tract infection. Contacted her PCP over the phone and was given a prescription for Cipro. No urine sample was collected. Associated signs and symptoms: Pertinent negatives: abdominal pain, fever, Flank pain. Severity of symptoms: in the emergency department the symptoms are unchanged Patient reports decreased p.o. intake due to vomiting. The patient has experienced similar episodes in the past, a few times, today's symptoms are similar, to previous UTI. Historical: - Allergies: 14:38 No Known Allergies; jl7 - Home Meds: 14:38 Chemo PO [Active]; jl7 - PMHx: 14:38 colon cancer; Diverticulitis; jl7 - PSHx: 14:38 Removal of small intestine; Cholecystectomy; jl7 - Immunization history:: Client reports having NOT received the Covid vaccine. - Social history:: Smoking status: Patient denies any tobacco usage or history of. ROS: 15:21 Constitutional: Negative for fever, chills, and weight loss, Cardiovascular: Negative pm1 for chest pain, palpitations, and edema, Respiratory: Negative for shortness of breath, cough, wheezing, and pleuritic chest pain. 15:21 Back: Negative for injury and pain, : Negative for injury, bleeding, discharge, and swelling, MS/Extremity: Negative for injury and deformity, Skin: Negative for injury, rash, and discoloration, Neuro: Negative for headache, weakness, numbness, tingling, and seizure. 15:21 Abdomen/GI: Positive for nausea and vomiting, Negative for abdominal pain, diarrhea. 15:21 All other systems are negative. Exam: 04/10 02:15 Constitutional: This is a well developed, well nourished patient who is awake, alert, pm1 and in no acute distress. Head/Face: Normocephalic, atraumatic. Back: No spinal tenderness. No costovertebral tenderness. Full range of motion. Skin: Warm, dry with normal turgor. Normal color with no rashes, no lesions, and no evidence of cellulitis. MS/ Extremity: Pulses equal, no cyanosis. Neurovascular intact. Full, normal range of motion. Eyes: Exam is negative for acute changes, Extraocular movements: no acute changes, Conjunctiva: no acute changes, no injection, Sclera: no acute changes, icterus, is not appreciated. ENT: Exam is negative for acute changes, Mouth: no acute changes, Lips: normal, moist, Oral mucosa: normal, pink and intact, moist. Cardiovascular: Exam negative for acute changes, Rate: normal, Rhythm: regular, Pulses: no pulse deficits are appreciated, Edema: is not appreciated. Respiratory: Exam negative for acute changes, respiratory distress, shortness of breath, Breath sounds: are clear throughout. Abdomen/GI: Inspection: abdomen appears normal, Palpation: abdomen is soft and non-tender, in all quadrants. Neuro: Exam negative for acute changes, Orientation: is normal, Mentation: is normal, Motor: is normal, moves all fours. Vital Signs: 04/09 14:34 BP 154 / 89; Pulse 109; Resp 17; Temp 97; Pulse Ox 98% on R/A; Weight 67.13 kg; Height jl7 4 ft. 11 in. (149.86 cm); Pain 0/10; 20:18 BP 117 / 72; Pulse 86; Resp 17 S; Pulse Ox 100% on R/A; Pain 0/10; lg3 14:34 Body Mass Index 29.89 (67.13 kg, 149.86 cm) jl7 MDM: 15:17 Patient medically screened. pm1 17:26 ED course: Patient does not want the flu or covid swab. Pending urine micro. pm1 18:04 Data reviewed: vital signs. Data interpreted: Pulse oximetry: on room air is 98 %. pm1 Interpretation: normal. 18:29 ED course: Infiltration of line with Rocephin IV. Uncertain if medication given and pm1 discussed with patient. Will order Rocephin IM prior to discharge. 19:30 Physician consultation: Evert Agudelo MD regarding plan of care. Disposition with pm1 antibiotic and return precautions for no improvement in symptoms or dehydration. 04/09 15:21 Order name: CBC with Diff pm1 04/09 15:21 Order name: CMP pm1 04/09 15:21 Order name: Urine Microscopic Only pm1 04/09 15:55 Order name: Urine Dipstick-Ancillary; Complete Time: 16:27 EDMS 04/09 16:07 Order name: CBC with Automated Diff; Complete Time: 16:27 EDMS 04/09 16:07 Order name: Comprehensive Metabolic Panel; Complete Time: 16:52 EDMS 04/09 16:15 Order name: Urine Microscopic Only; Complete Time: 17:35 EDMS 04/09 17:35 Order name: Urine Culture EDMS 04/09 15:21 Order name: IV Saline Lock; Complete Time: 16:17 pm1 04/09 15:21 Order name: Urine Dipstick-Ancillary (obtain specimen); Complete Time: 16:15 pm1 Administered Medications: 16:15 Drug: NS 0.9% 1000 ml Route: IV; Rate: 1000 ml; Site: right forearm; [facility] 20:19 Follow up: Response: No adverse reaction; IV Status: Completed infusion; IV Intake: lg3 1000ml 16:15 Drug: Zofran (Ondansetron) 4 mg Route: IVP; Site: right forearm; 6 19:29 Follow up: Response: No adverse reaction lg3 18:02 Drug: Rocephin (cefTRIAXone) 1 grams Route: IV; Rate: calculated rate; Site: right [facility] forearm; 18:27 Follow up: Response: No adverse reaction 6 20:19 Follow up: Response: No adverse reaction; IV Status: Completed infusion; IV Intake: lg3 100ml 19:48 Drug: Rocephin (cefTRIAXone) 1 grams Route: IM; Site: right gluteus; lg3 19:48 Follow up: Response: No adverse reaction lg3 Disposition: 04/10 06:29 Co-signature as Attending Physician, Evert Agudelo MD I agree with the assessment and kdr plan of care. Disposition Summary: 04/09/21 19:33 Discharge Ordered Location: Home pm1 Problem: new pm1 Symptoms: have improved pm1 Condition: Stable pm1 Diagnosis - UTI/ Urinary tract infection, site not specified pm1 - Vomiting pm1 Followup: pm1 - With: Emergency Department - When: As needed - Reason: Worsening of condition Followup: pm1 - With: Private Physician - When: 2 - 3 days - Reason: Recheck today's complaints, Continuance of care, Re-evaluation by your physician Discharge Instructions: - Discharge Summary Sheet pm1 - Urinary Tract Infection, Adult pm1 - Vomiting, Adult pm1 Forms: - Medication Reconciliation Form pm1 - Thank You Letter pm1 - Antibiotic Education pm1 - Prescription Opioid Use pm1 Prescriptions: - ondansetron 4 mg Oral tablet,disintegrating - place 1 tablet by TRANSLINGUAL route every 8 hours As needed; 15 tablet; pm1 Refills: 0, Product Selection Permitted - Bactrim DS 800-160 mg Oral Tablet - take 1 tablet by ORAL route every 12 hours for 10 days; 20 tablet; Refills: 0, pm1 Product Selection Permitted - Diflucan 150 mg Oral Tablet - take 1 tablet by ORAL route one time for 1 day; 1 tablet; Refills: 0, Product pm1 Selection Permitted Signatures: Dispatcher [employer] [facility] Evert Agudelo MD MD kdr Chele Fischer NP [employer] pm1 Ayla Herman RN RN jl7 Ruby Logan RN RN lg3 Carla Kenny RN RN jh6 Corrections: (The following items were deleted from the chart) 04/09 17:05 16:15 CBC with Automated Diff ordered. [facility] 17:06 16:15 Comprehensive Metabolic Panel ordered. [facility] 04/10 02:15 02 15:21 Onset: The symptoms/episode began/occurred 3 day(s) ago, pm1 pm1
[2021-04-09 20:31] VITALS: TEMP 97
[2021-04-09 20:32] VITALS: BP 117/72; O2SAT 100
== END 2021-04-09 20:19 | disposition home or self-care (01) ==
LOC: ER 14:01
DX: N39.0 Urinary tract infection, site not specified (principal); Z85.038 Personal history of other malignant neoplasm of large intestine
CPT/HCPCS: 96365; 96361; 87088; 85025; 87086; 36415; 80053; 96375; 96372; 99283; 96366; J7030; J2405; 81003; 81015